=== PATIENT | male | born 1960 | race Caucasian/White ===

== ENCOUNTER → 2020-10-02 08:06 | Outpatient (BNVA) | payer BC, SELFPAY | PROVIDERS: Visit Provider Psychiatry & Neurology Neurology | DX: Z76.89 Persons encountering health services in other specified circumstances (principal) ==

== ENCOUNTER → 2021-01-23 08:20 | Outpatient (REF) | payer BC, SELFPAY ==
--- NOTE | 2021-01-23 08:30 | CA_ITS ---
Transthoracic Echocardiogram Patient (Last, First, Middle): Yemi Jalloh J Gender: Male Date of : 1960 Age: 60 Procedure Date: 01/23/2021 Procedure Type: Transthoracic Echocardiogram Location: OP Height: 182.88 cm Weight: 124.74 kg BSA: 2.44 m2 Heart Rate: bpm BP: 122 / 70 mmHg [employer]acher [place] [employer]: Referring MD: Gamal Roque MD Acquisition Professional: Berlin Nicholas MD Symptoms: I71.2 THORACIC AA W/O RUPTURE Study Quality: Good ECG Rhythm: Sinus Conclusions: - 1. Moderately dilated ascending aorta measured at 4.8 cm on this study 2. Normal LV systolic function with impaired relaxation filling pattern 3. Normal cardiac valvular Dopplers 4. Normal RV systolic pressure 5. No pericardial effusion Findings Left Ventricle Normal left ventricular size, thickness, and systolic function. The visually estimated ejection fraction is between 55-60%. Spectral Doppler is indicative of an impaired relaxation filling pattern. E/E prime ratio is between 8 and 15 consistent with indeterminate filling pressures. Right Ventricle Normal right ventricular cavity size and systolic function. Atria Both atria are normal in size. There is no evidence of interatrial shunt. Aortic Valve The aortic valve structure and function is likely normal. There is no aortic valve stenosis. There is no aortic valve regurgitation. Mitral Valve Normal mitral valve structure and function. There is trace mitral valve regurgitation. There is no mitral valve stenosis. Pulmonic Valve The pulmonic valve was not well visualized. Tricuspid Valve Normal tricuspid valve structure. There is trace tricuspid valve regurgitation. The right ventricular systolic pressure is normal. The right ventricular systolic pressure is 21 mmHg. Normal right atrial pressure. There is no evidence of pulmonary hypertension. Great Vessels The pulmonary artery was not well visualized. There is moderate dilatation of the ascending aorta measuring 4.80 cm. Venous The inferior vena cava is normal in size and collapses greater than 50% with inspiration. Pericardium/Pleural There is no evidence of pericardial effusion. Prior Study Comparison Changes noted compared to prior study dated: 07/22/2020. Ascending aorta is measured at 4.8 cm, consider thoracic CTA to evaluate the entirety of the ascending aorta Measurements 2D Linear Measurements IVSd: 1.44 0.6-0.9/0.6-1.0 cm LVIDd: 3.86 3.9-5.3/4.2-5.9 cm LVIDd Index: 1.58 2.4-3.2/2.2-3.1 cm/m2 LVIDs: 2.20 2.0-3.6 cm LVPWd: 1.45 0.7-1.1 cm Ao Root: 3.00 2.1-3.5 cm LA Diam: 3.60 2.7-3.8/3.0-4.0 cm LAIDs Index: 1.48 1.5-2.3 cm/m2 LV Mass: 260.04 67-162/88-224 g LV Mass Index: 106.57 43-95/49-115 g/m2 LVOT Diam: 2.10 3.0+(-)1.3 cm 2D Systolic Function EF 4C: 67.00 >55% EF 2C: 73.70 >55% Mitral Valve MV Pk E: 0.87 MV PK A: 0.72 MV Decel Time: 206.00 E/A: 1.20 E'Lateral: 11.20 E'Medial: 9.48 E/E' Med: 9.20 E/E' Lat: 7.80 PHT: 60.00 MVA PHT: 3.67 Decel [place]: 4.24 Aortic Valve AoV Pk Tanner: 1.39 AoV Mn Tanner: 0.92 AoV VTI: 0.30 AoV Pk Grad: 8.00 Aov Mn Grad: 4.00 DIA Cont.VTI: 2.97 LVOT LVOT Pk Tanner: 1.29 LVOT Mn Tanner: 0.78 LVOT VTI: 0.26 LVOT Pk Grad: 7.00 LVOT Mn Grad: 3.00 LVOT Diam: 2.10 LVOT Area: 3.46 Diastolic Function MV Pk E: 0.87 MV Pk A: 0.72 E/A: 1.20 E'Medial: 9.48 E/E' Med: 9.20 E' Laterial: 11.20 E/E' Lat: 7.80 Tricuspid Valve TR Pk Tanner: 2.13 TR Pk Grad: 18.00 RA Press: 3.00 RVSP: 21.00 Great Vessels Aorta Ao Root-2D: 3.00 2.0-3.7 cm Ao Asc: 4.80 2.1-3.4 cm Pulmonary Valve PV Pk Tanner: 1.07 Peak PV Grad: 5.00 Updated in Other Vendor System with Status of Final Berlin Nicholas MD electronically signed on 01/24/2021 2:50:51 PM with status of Final
== END ==
LOC: HO.CARD 08:20
PROVIDERS: PCP Nurse Practitioner Family; Visit Provider Internal Medicine
DX: I71.2 Thoracic aortic aneurysm, without rupture (principal)
CPT/HCPCS: 93306

== ENCOUNTER 2021-02-06 09:32 | Outpatient (REF) | payer BC, SELFPAY ==
[2021-02-06 11:59] LABS: Anion Gap 14 (12-20); Blood Urea Nitrogen 17 mg/dL (9-16); Carbon Dioxide 27 mmol/L (22-29); Chloride 104 mmol/L (96-108); Estimated Glomerular Filt Rate > 60; Glucose Random 115 mg/dL (60-115); Potassium 4.4 mmol/L (3.3-5.1); Sodium 141 mmol/L (135-145)
== END 2021-02-06 09:33 | disposition home or self-care (01) ==
LOC: HO.HMGCLDS 09:32
PROVIDERS: PCP Nurse Practitioner Family; Visit Provider Nurse Practitioner Family
DX: I71.2 Thoracic aortic aneurysm, without rupture (principal)
CPT/HCPCS: 36415; 80048

== ENCOUNTER 2021-02-18 08:36 | Outpatient (REF) | payer BC, SELFPAY ==
[2021-02-18 09:47] LABS: MANUAL DIFF FLAG NO
[2021-02-18 09:52] LABS: Basophils Absolute Auto 0.1 X10*3/uL (0.0-0.2); Basophils Percent Auto 0.7 % (0-2); Eosinophils Absolute Auto 0.1 X10*3/uL (0.0-0.4); Eosinophils Percent Auto 1.8 % (0-4); Hematocrit 44.7 % (42-52); Hemoglobin 14.6 g/dl (14.0-18.0); Imm Gran Abs Auto 0.01 X10*3/uL (0.00-0.03); Imm Gran Pct Auto 0.1 % (0.0-0.4); Lymphocytes Percent Auto 28.9 % (20-40); Mean Corpuscular HGB Conc 32.7 g/dl (31.0-36.0); Mean Corpuscular Hemoglobin 28.5 pg (27.0-33.0); Mean Corpuscular Volume 87.3 fL (80-98); Mean Platelet Volume 8.2 fL (9.4-12.4); Monocytes Absolute Auto 0.5 X10*3/uL (0.1-1.2); Monocytes Percent Auto 6.7 % (2-11); Neutrophils Absolute Auto 4.2 X10*3/uL (2.0-8.3); Neutrophils Percent Auto 61.8 % (45-73); Platelet Count 236 X10*3/uL (160-400); Red Blood Count 5.12 X10*6/uL (4.60-5.80); Red Cell Distribution Width 13.9 % (11.0-16.0); White Blood Count 6.8 X10*3/uL (4.8-10.8)
[2021-02-18 10:22] LABS: Alanine Aminotransferase 18 U/L (0-40); Albumin Level 4.4 g/dL (3.5-5.0); Alkaline Phosphatase 82 U/L (39-117); Anion Gap 15 (12-20); Aspartate Amino Transferase 18 U/L (5-37); Bilirubin Total 0.8 mg/dL (0.0-1.0); Blood Urea Nitrogen 16 mg/dL (9-16); Calcium 9.1 mg/dL (8.4-10.2); Carbon Dioxide 24 mmol/L (22-29); Chloride 107 mmol/L (96-108); Cholesterol 144 mg/dL; Estimated Glomerular Filt Rate > 60; Glucose Fasting 105 mg/dL (60-99); HDL Cholesterol 33 mg/dL; Iron 129 mcg/dL (45-160); LDL Cholesterol Calculated 78 mg/dl; Percent Iron Saturation 37 % (15-50); Potassium 4.6 mmol/L (3.3-5.1); Sodium 141 mmol/L (135-145); Total Iron Binding Capacity 351 mcg/dL (228-428); Total Protein 7.3 g/dL (6.5-8.0); Triglycerides 167 mg/dL; Unsaturated Iron Binding 222 ug/dL
[2021-02-18 10:41] LABS: Prostate Specific Antigen Scr 0.41 ng/mL (<0.05-4.0); TSH reflex Free T4 2.49 uIU/mL (0.32-4.0)
[2021-02-18 10:44] LABS: Ferritin 268 ng/mL (20-250)
[2021-02-18 11:05] LABS: Folate 4.8 ng/mL (> or = 4.0); Vitamin B12 307 pg/mL (200-900)
[2021-02-22 15:56] LABS: Testosterone, Total 177 ng/dL (250-1100)
== END 2021-02-18 08:37 | disposition home or self-care (01) ==
LOC: HO.LAB 08:36
PROVIDERS: Absent Provider Nurse Practitioner Family; PCP Nurse Practitioner Family; Visit Provider Internal Medicine
DX: Z00.00 Encounter for general adult medical examination without abnormal findings (principal); R53.83 Other fatigue; I10 Essential (primary) hypertension; I71.2 Thoracic aortic aneurysm, without rupture; I47.1 Supraventricular tachycardia; G47.33 Obstructive sleep apnea (adult) (pediatric); Z12.5 Encounter for screening for malignant neoplasm of prostate; Z99.89 Dependence on other enabling machines and devices; Z79.82 Long term (current) use of aspirin; Z79.899 Other long term (current) drug therapy
CPT/HCPCS: 36415; 80053; 80061; 82607; 82728; 82746; 83540; 84153; 84403; 84443; 85025

== ENCOUNTER 2021-07-02 09:08 | Outpatient (REF) | payer OTHER, SELFPAY ==
[2021-07-02 11:55] LABS: Anion Gap 12 (12-20); Blood Urea Nitrogen 10 mg/dL (9-16); Calcium 9.1 mg/dL (8.4-10.2); Carbon Dioxide 27 mmol/L (22-29); Chloride 106 mmol/L (96-108); Estimated Glomerular Filt Rate > 60; Glucose Random 133 mg/dL (60-115); Potassium 4.1 mmol/L (3.3-5.1); Sodium 141 mmol/L (135-145)
[2021-07-02 12:19] LABS: Ferritin 271 ng/mL (20-250)
== END 2021-07-02 09:09 | disposition home or self-care (01) ==
LOC: HO.HMGCLDS 09:08
PROVIDERS: PCP Nurse Practitioner Family; Visit Provider Internal Medicine
DX: I71.2 Thoracic aortic aneurysm, without rupture (principal); R79.89 Other specified abnormal findings of blood chemistry
CPT/HCPCS: 36415; 80048; 82728

== ENCOUNTER → 2021-07-31 10:26 | Outpatient (REF) | payer OTHER, SELFPAY ==
--- NOTE | 2021-07-31 10:30 | CA_ITS ---
Transthoracic Echocardiogram Patient (Last, First, Middle): Yemi Jalloh J Gender: Male Date of : 1960 Age: 61 Procedure Date: 07/31/2021 Procedure Type: Transthoracic Echocardiogram Location: OP Height: 182.88 cm Weight: 120.2 kg BSA: 2.40 m2 Heart Rate: bpm Talent Manager: GREY Referring MD: Gamal Roque MD Apron Trimmer: Berlin Nicholas MD Symptoms: I71.2 - Thoracic aortic aneurysm, without rupture Study Quality: Fair ECG Rhythm: Sinus Conclusions: - 1.Moderately dilated ascending aorta, measured at 4.5 cm on this study 2. Normal LV systolic and diastolic function 3. Normal cardiac valvular Doppler 4. No gross pericardial effusion 5. Normal RV systolic pressure Findings Left Ventricle Normal left ventricular size, thickness, and systolic function. The visually estimated ejection fraction is between 60-65%. Spectral Doppler is indicative of a normal filling pattern. Right Ventricle Normal right ventricular cavity size and systolic function. Atria The left atrium is normal in size. There is no evidence of interatrial shunt. The right atrium is normal in size. Aortic Valve The aortic valve structure and function is likely normal. There is no aortic valve stenosis. There is no aortic valve regurgitation. Mitral Valve Normal mitral valve structure and function. There is trace mitral valve regurgitation. There is no mitral valve stenosis. Pulmonic Valve The pulmonic valve was not well visualized. Tricuspid Valve Likely normal tricuspid valve structure and function. There is trace tricuspid valve regurgitation. The right ventricular systolic pressure is normal. The right ventricular systolic pressure is 25 mmHg. There is no evidence of pulmonary hypertension. Great Vessels The pulmonary artery was not well visualized. There is moderate dilatation of the ascending aorta measuring 4.50 cm. Venous The inferior vena cava is normal in size and collapses greater than 50% with inspiration. Pericardium/Pleural There is no evidence of pericardial effusion. Prior Study Comparison Measured ascending aorta on this study at 4.5 cm, which is smaller the prior study at 4.8 cm. Could be underestimated on this study Measurements 2D Linear Measurements IVSd: 0.83 0.6-0.9/0.6-1.0 cm LVIDd: 4.34 3.9-5.3/4.2-5.9 cm LVIDd Index: 1.81 2.4-3.2/2.2-3.1 cm/m2 LVIDs: 2.77 2.0-3.6 cm LVPWd: 0.78 0.7-1.1 cm Ao Root: 3.30 2.1-3.5 cm LA Diam: 4.20 2.7-3.8/3.0-4.0 cm LAIDs Index: 1.75 1.5-2.3 cm/m2 LV Mass: 303.16 67-162/88-224 g LV Mass Index: 126.32 43-95/49-115 g/m2 LVOT Diam: 2.40 3.0+(-)1.3 cm Mitral Valve MV Pk E: 0.93 MV PK A: 0.74 MV Decel Time: 201.00 E/A: 1.30 E'Lateral: 10.70 E'Medial: 7.51 E/E' Med: 12.40 E/E' Lat: 8.70 PHT: 59.00 MVA PHT: 3.73 Decel [place]: 4.57 Aortic Valve AoV Pk Tanner: 1.43 AoV Mn Tanner: 1.07 AoV VTI: 0.34 AoV Pk Grad: 8.00 Aov Mn Grad: 5.00 DIA Cont.VTI: 3.22 LVOT LVOT Pk Tanner: 0.95 LVOT Mn Tanner: 0.73 LVOT VTI: 0.24 LVOT Pk Grad: 4.00 LVOT Mn Grad: 2.00 LVOT Diam: 2.40 LVOT Area: 4.52 Diastolic Function MV Pk E: 0.93 MV Pk A: 0.74 E/A: 1.30 E'Medial: 7.51 E/E' Med: 12.40 E' Laterial: 10.70 E/E' Lat: 8.70 Tricuspid Valve TR Pk Tanner: 2.33 TR Pk Grad: 22.00 RA Press: 3.00 RVSP: 25.00 Great Vessels Aorta Ao Root-2D: 3.30 2.0-3.7 cm Ao Asc: 4.50 2.1-3.4 cm Pulmonary Valve PV Pk Tanner: 1.13 Peak PV Grad: 5.00 Updated in Other Vendor System with Status of Final Berlin Nicholas MD electronically signed on 07/31/2021 1:11:04 PM with status of Final
== END ==
LOC: HO.CARD 10:26
PROVIDERS: PCP Nurse Practitioner Family; Visit Provider Internal Medicine
DX: I71.2 Thoracic aortic aneurysm, without rupture (principal)
CPT/HCPCS: 93306

== ENCOUNTER → 2021-08-19 08:29 | Outpatient (BNVA) | payer OTHER, SELFPAY | PROVIDERS: PCP Nurse Practitioner Family; Referring Provider Nurse Practitioner Family; Visit Provider Internal Medicine ==

== ENCOUNTER 2022-01-21 08:48 | Outpatient (REF) | payer OTHER, SELFPAY ==
[2022-01-21 11:46] LABS: Appearance Urine CLOUDY; Color Urine YELLOW; Glucose Urine UA NEG (NEG); Leukocyte Esterase Urine NEG (NEG); Nitrite Urine NEG (NEG); Specific Gravity - Urine >= 1.030 (1.005-1.025); Urine Blood NEG (NEG); Urine Ketones NEG (NEG); Urine Protein NEG (NEG-TRACE)
[2022-01-21 12:04] LABS: Alanine Aminotransferase 19 U/L (0-40); Albumin Level 4.4 g/dL (3.5-5.0); Alkaline Phosphatase 79 U/L (39-117); Anion Gap 12 (12-20); Aspartate Amino Transferase 17 U/L (5-37); Bilirubin Total 0.8 mg/dL (0.0-1.0); Blood Urea Nitrogen 19 mg/dL (9-16); Calcium 9.6 mg/dL (8.4-10.2); Carbon Dioxide 25 mmol/L (22-29); Chloride 105 mmol/L (96-108); Cholesterol 132 mg/dL; Estimated Glomerular Filt Rate > 60; Glucose Fasting 114 mg/dL (60-99); HDL Cholesterol 31 mg/dL; LDL Cholesterol Calculated 75 mg/dl; Potassium 4.3 mmol/L (3.3-5.1); Sodium 138 mmol/L (135-145); Total Protein 7.3 g/dL (6.5-8.0); Triglycerides 132 mg/dL
[2022-01-21 12:10] LABS: Prostate Specific Antigen Scr 0.48 ng/mL (<0.05-4.0); TSH reflex Free T4 2.13 uIU/mL (0.32-4.0)
== END 2022-01-21 08:49 | disposition home or self-care (01) ==
LOC: HO.HMGCLDS 08:48
PROVIDERS: PCP Nurse Practitioner Family; Visit Provider Nurse Practitioner Family
DX: I10 Essential (primary) hypertension (principal); Z12.5 Encounter for screening for malignant neoplasm of prostate
CPT/HCPCS: 36415; 80053; 80061; 81003; 84153; 84443

== ENCOUNTER 2022-02-17 09:25 | Outpatient (REF) | payer OTHER, SELFPAY ==
[2022-02-17 12:50] LABS: Anion Gap 12 (12-20); Blood Urea Nitrogen 15 mg/dL (9-16); Calcium 9.3 mg/dL (8.4-10.2); Carbon Dioxide 27 mmol/L (22-29); Chloride 107 mmol/L (96-108); Estimated Glomerular Filt Rate > 60; Glucose Random 127 mg/dL (60-115); Potassium 4.2 mmol/L (3.3-5.1); Sodium 142 mmol/L (135-145)
== END 2022-02-17 09:26 | disposition home or self-care (01) ==
LOC: HO.HMGCLDS 09:25
PROVIDERS: Visit Provider Internal Medicine
DX: I10 Essential (primary) hypertension (principal)
CPT/HCPCS: 36415; 80048

== ENCOUNTER → 2022-03-11 13:26 | Outpatient (BNVA) | payer OTHER, SELFPAY | PROVIDERS: PCP Nurse Practitioner Family; Referring Provider Nurse Practitioner Family; Visit Provider Internal Medicine | DX: I71.2 Thoracic aortic aneurysm, without rupture (principal); I47.1 Supraventricular tachycardia; I44.0 Atrioventricular block, first degree; I10 Essential (primary) hypertension; G47.33 Obstructive sleep apnea (adult) (pediatric); Z99.89 Dependence on other enabling machines and devices | CPT/HCPCS: 93005 ==

== ENCOUNTER → 2022-08-06 10:32 | Outpatient (REF) | payer OTHER, SELFPAY ==
--- NOTE | 2022-08-06 10:34 | CA_ITS ---
Transthoracic Echocardiogram Patient (Last, First, Middle): Yemi Jalloh J Gender: Male Date of : 1960 Age: 62 Procedure Date: 08/06/2022 Procedure Type: Transthoracic Echocardiogram Location: OP Height: 182.88 cm Weight: 122.47 kg BSA: 2.42 m2 Heart Rate: bpm [employer] Bagger: OBDULIA Referring MD: Gamal Roque MD Symptoms: I71.2 - Thoracic aortic aneurysm, without rupture Study Quality: Technically Difficult/BSA/Contrast ECG Rhythm: Sinus Conclusions: - The left ventricular systolic function is hyperdynamic. The visually estimated ejection fraction is >70%. - No obvious valvular pathology seen on this study. - There is moderate dilatation of the ascending aorta measuring 4.70 cm. Findings Procedure Information Contrast agent, definity, is being given per protocol without apparent complications. Left Ventricle Normal left ventricular cavity size. The left ventricular systolic function is hyperdynamic. The visually estimated ejection fraction is >70%. There is no evidence of regional wall motion abnormalities. Diastolic function is normal for age. There is mild septal asymmetric hypertrophy. Right Ventricle Normal right ventricular cavity size and systolic function. Atria Both atria are normal in size. Aortic Valve There is a normal trileaflet aortic valve. There is no aortic valve stenosis. There is no aortic valve regurgitation. Mitral Valve The mitral valve appears normal. There is no mitral valve regurgitation. There is no mitral valve stenosis. Pulmonic Valve The pulmonic valve is likely normal. Tricuspid Valve The tricuspid valve was not well visualized. There is no tricuspid valve regurgitation. Tricuspid regurgitation envelope is inadequate for calculation of right ventricular systolic pressure. Great Vessels The aortic annulus and sino tubular ridge are normal in size. There is moderate dilatation of the ascending aorta measuring 4.70 cm. Venous The inferior vena cava is normal in size and collapses greater than 50% with inspiration. Pericardium/Pleural There is no evidence of pericardial effusion. Prior Study Comparison No significant change compared to prior study dated: 07/31/2021. Variable ascending aortic measurements in the past, upto 4.8cm. Recommendations, Care & Conclusions No obvious valvular pathology seen on this study. Measurements 2D Linear Measurements IVSd: 0.98 0.6-0.9/0.6-1.0 cm LVIDd: 4.72 3.9-5.3/4.2-5.9 cm LVIDd Index: 1.95 2.4-3.2/2.2-3.1 cm/m2 LVPWd: 0.83 0.7-1.1 cm LA Diam: 3.50 2.7-3.8/3.0-4.0 cm LAIDs Index: 1.45 1.5-2.3 cm/m2 LV Mass: 180.22 67-162/88-224 g LV Mass Index: 74.47 43-95/49-115 g/m2 LVOT Diam: 2.30 3.0+(-)1.3 cm 2D Systolic Function EF 4C: 82.00 >55% EF 2C: 70.90 >55% EF BiP: 77.60 >55% Mitral Valve MV Pk E: 0.93 MV PK A: 0.85 MV Decel Time: 218.00 E/A: 1.10 E'Lateral: 8.59 E'Medial: 7.29 E/E' Med: 12.80 E/E' Lat: 10.90 PHT: 64.00 MVA PHT: 3.44 Decel [place]: 4.29 Aortic Valve AoV Pk Tanner: 1.48 AoV Mn Tanner: 1.06 AoV VTI: 0.31 AoV Pk Grad: 9.00 Aov Mn Grad: 5.00 DIA Cont.VTI: 3.81 LVOT LVOT Pk Tanner: 1.22 LVOT Mn Tanner: 1.02 LVOT VTI: 0.28 LVOT Pk Grad: 6.00 LVOT Mn Grad: 5.00 LVOT Diam: 2.30 LVOT Area: 4.15 Diastolic Function MV Pk E: 0.93 MV Pk A: 0.85 E/A: 1.10 E'Medial: 7.29 E/E' Med: 12.80 E' Laterial: 8.59 E/E' Lat: 10.90 Right Ventricle TAPSE (mm): 18.30 TVS' Tanner: 12.20 Tricuspid Valve RA Press: 8.00 Great Vessels Aorta Sinus of Valsalva: 3.30 2.0-3.5 cm Ao Asc: 4.70 2.1-3.4 cm Pulmonary Valve PV Pk Tanner: 1.05 Peak PV Grad: 4.00 Updated in Other Vendor System with Status of Final Gamal Roque MD electronically signed on 08/07/2022 11:08:13 AM with status of Final
== END ==
LOC: HO.CARD 10:32
PROVIDERS: PCP Nurse Practitioner Family; Referring Provider Hospitalist; Visit Provider Internal Medicine
DX: I71.2 Thoracic aortic aneurysm, without rupture (principal)
CPT/HCPCS: 93306; Q9957

== ENCOUNTER 2023-01-12 10:33 | Outpatient (REF) | payer OTHER, SELFPAY ==
[2023-01-12 14:51] LABS: Anion Gap 10 (12-20); Blood Urea Nitrogen 14 mg/dL (9-16); Calcium 8.9 mg/dL (8.4-10.2); Carbon Dioxide 27 mmol/L (22-29); Chloride 107 mmol/L (96-108); Estimated Glomerular Filt Rate > 60; Glucose Random 97 mg/dL (60-115); Potassium 4.4 mmol/L (3.3-5.1); Sodium 140 mmol/L (135-145)
== END 2023-01-12 10:34 | disposition home or self-care (01) ==
LOC: HO.HMGCLDS 10:33
PROVIDERS: PCP Nurse Practitioner Family; Visit Provider Internal Medicine
DX: I71.20 Thoracic aortic aneurysm, without rupture, unspecified (principal)
CPT/HCPCS: 36415; 80048

== ENCOUNTER → 2023-02-25 08:47 | Outpatient (BNVA) | payer OTHER, SELFPAY | PROVIDERS: PCP Nurse Practitioner Family; Referring Provider Nurse Practitioner Family; Visit Provider Internal Medicine | DX: I71.20 Thoracic aortic aneurysm, without rupture, unspecified (principal); I10 Essential (primary) hypertension; I47.1 Supraventricular tachycardia; I44.1 Atrioventricular block, second degree | CPT/HCPCS: 93005 ==

== ENCOUNTER → 2023-05-08 10:52 | Outpatient (BNVA) | payer OTHER, SELFPAY | PROVIDERS: PCP Nurse Practitioner Family; Visit Provider Internal Medicine Gastroenterology ==

== ENCOUNTER 2023-05-20 10:48 | Day surgery (SDC) | payer OTHER, SELFPAY ==
[2023-05-15 11:41] VITALS: BMI 33.4
--- NOTE | 2023-05-18 10:20 | HO.ANESPROP2 ---
Documented by User: Valentina Thapa NP 05/18/23 10:24 HPI - Anesthesia Eval Consult details Narrative: 63yo M for EGD with Balloon Dilitation, Colonoscopy Cardiac visit 02/2023: Suggestion of Mobitz 1 second-degree block on EKG but there are no dropped beats.? He has no symptoms whatsoever.? He will keep an eye on heart rates with his smart watch. SVT s/p ablation without recurrence REI - not using CPAP, losing weight AAA stable PMFSH Active Problems Active Problems: All Active Problems (Updated 05/15/23 @ 11:40 by Alysha Barrientos RN) Obstructive sleep apnea (Acute) Thoracic aortic aneurysm (Acute) Physical exam (Acute) Screening PSA (prostate specific antigen) (Acute) Dyslipidemia (Acute) Fatigue (Acute) Elevated ferritin (Acute) Low testosterone (Acute) First degree heart block by electrocardiogram (Acute) Second degree heart block (Acute) Screening for colon cancer (Acute) Dysphagia (Acute) REI on CPAP (Acute) Essential hypertension (Acute) Ascending aortic aneurysm (Acute) HTN (hypertension) (Acute) Past Medical History Medical History (Updated 05/20/23 @ 11:16 by Lisa Bowen RN) Ascending aorta dilatation Ascending aortic aneurysm Elevated cholesterol Essential hypertension HTN (hypertension) REI on CPAP SVT (supraventricular tachycardia) Family History Family History Father CHF (congestive heart failure) Vascular disease HTN (hypertension) CVD (cardiovascular disease) Diabetes mellitus Mother Stroke Brother HTN (hypertension) High cholesterol Blocked artery Sister HTN (hypertension) Son No problems noted. Daughter No problems noted. Surgical History Surgical History (Updated 05/15/23 @ 11:39 by Alysha Barrientos RN) History of esophagogastroduodenoscopy (EGD) History of meniscectomy of left knee Hx of colonoscopy Hx of meniscectomy of right knee Social History Social History Housing: House Alcohol intake: current Alcohol intake frequency: a few times a week Patient Tobacco Use Status: Never used Tobacco e-Cigarette/Vaping Use: Never Used Second Hand Smoke Exposure: No Use of substances other than those prescribed or required for medical reasons: No Are you DNR?: No Advance Directives: No Advance Directives Information Provided: Yes Recently lost weight without trying: No How much weight loss: 14-23 pounds Nutrition Risks: No Nutritional Risk service: No Current occupational status: retired Cognitive needs: No Hearing needs: No Vision needs: No Meds Allergies Allergy/AdvReac Type Severity Reaction Status Date / Time No Known Allergies Allergy Verified 05/08/23 10:55 Exam Exam Date and Time: May 18, 2023 1020 Height,Weight and Vital Signs: Height 6 ft 1 in Weight 114.759 kg Pertinent Lab Results Pertinent Lab Results: Laboratory Tests 01/12/23 10:47 Sodium 140 Potassium 4.4 Chloride 107 Carbon Dioxide 27 BUN 14 Creatinine 0.81 Narrative Narrative: EKG 02/2023 underlying sinus rhythm with Mobitz type 1 second-degree heart block but do not see any dropped beats. Per cardiac visit 02/2023 chest CTA, ascending aortic size 4.4/4.4 cm.? This is similar to the prior study and the measurements are identical.? From coronary standpoint, no hemodynamically significant CAD. In a prior chest CT, it was 4.6 cm.? In the echocardiograms, measured at 4.7 cm. Overall, there is a discrepancy between the echocardiogram and chest CTA.? However, the last 2 measurements in the chest CT are identical.? Hence we will probably just do CTs in the future for measurements. Assessment and Plan Assessment Anesthesia Assessment: Chart Reviewed Documented by User: Ricco De Los Santos MD 05/20/23 11:18 [facility] Past Medical History Medical History (Updated 05/20/23 @ 11:16 by Lisa Bowen RN) Ascending aorta dilatation Ascending aortic aneurysm Elevated cholesterol Essential hypertension HTN (hypertension) REI on CPAP SVT (supraventricular tachycardia) Family History Family History Father CHF (congestive heart failure) Vascular disease HTN (hypertension) CVD (cardiovascular disease) Diabetes mellitus Mother Stroke Brother HTN (hypertension) High cholesterol Blocked artery Sister HTN (hypertension) Son No problems noted. Daughter No problems noted. Family history of problems with anesthesia: No Surgical History Surgical History (Updated 05/15/23 @ 11:39 by Alysha Barrientos RN) History of esophagogastroduodenoscopy (EGD) History of meniscectomy of left knee Hx of colonoscopy Hx of meniscectomy of right knee History of Problems with Anesthesia: No Social History Social History Housing: House Alcohol intake: current Alcohol intake frequency: a few times a week Patient Tobacco Use Status: Never used Tobacco e-Cigarette/Vaping Use: Never Used Second Hand Smoke Exposure: No Use of substances other than those prescribed or required for medical reasons: No Are you DNR?: No Advance Directives: No Advance Directives Information Provided: Yes Recently lost weight without trying: No How much weight loss: 14-23 pounds Nutrition Risks: No Nutritional Risk service: No Current occupational status: retired Cognitive needs: No Hearing needs: No Vision needs: No Meds Allergies Allergy/AdvReac Type Severity Reaction Status Date / Time No Known Allergies Allergy Verified 05/08/23 10:55 Exam Airway Mallampati Class: II TM Dist: >3cm Neck ROM: Limited Heart: rrr Lungs: cta Assessment and Plan Assessment Anesthesia Assessment: Anesthesia Plan Discussed Final Anesthetic Review Family History of Problems with Anesthesia: No History of Problems with Anesthesia: No NPO: Yes ASA Class: III Final Preanesthetic Review: No Changes in Pt Med Stat, Meds/Allgs Chart Reviewed, Consent Obtained/Reviewed and Anes Risks/Benef Reviewed Patient Risk: Intermediate Procedure Risk: Intermediate Anesthetic Plan Anesthetic Plan: MAC: and Agree w/ Assess. and Plan Disposition: Standard PACU
[2023-05-20 11:03] VITALS: BP 151/95; PULSE 83; RESP 16; TEMP 36.9; O2SAT 97
[2023-05-20] MEDS: Lactated Ringers 1,000 ML 100 ML IVCONT (11:16)
--- NOTE | 2023-05-20 11:26 | MHC.SHP ---
Pre-Procedural Eval Section A Date of Service: 05/20/23 The patient is an INPATIENT: No The History & Physical has been completed within 30 days and I have reviewed it.: Yes Section B Chief Complaint: Dysphagia, unspecified,Screening Allergies: Allergies Allergy/AdvReac Type Severity Reaction Status Date / Time No Known Allergies Allergy Verified 05/08/23 10:55 Plan Diagnosis/Plan: Unchanged I have reviewed the history and physical and performed a pertinent physical examination on my patient. No changes have occurred unless specified. Time Spent With Patient Time: Total time managing care of this patient today ____ minutes.
--- NOTE | 2023-05-20 11:27 | W.PM.OPN ---
Operative Note Operative Note Date of Service: 05/20/23 Narrative: Operative Information Procedure Description: EGD, Colonoscopy Indication: dysphagia, hx of colon polyps Anesthesia: MAC FLEXIBLE TRANSORAL UPPER GASTROINTESTINAL ENDOSCOPY AND COLONOSCOPY PROCEDURE NOTE UPPER ENDOSCOPY Consent: Indications for the procedure and potential complications of bleeding, perforation, reaction to medications and missed diagnosis were discussed with the patient and informed consent was obtained. Instrument: Olympus GIF H 190 J mid size upper endoscope Monitoring: Vital signs and clinical assessment, continuous EKG monitoring, Pulse oximetry, Carbon Dioxide monitoring and blood pressure monitoring were done throughout the procedure. Procedure: The patient was placed in the left lateral decubitis position and pre-procedure medications were administered and a bite block was placed. The endoscope was inserted into the mouth and advanced under direct vision to the third part of duodenum. A careful inspection was made as the upper endoscope was withdrawn including a retroflexed examination of the proximal stomach; Findings and interventions are described below. Findings: Larynx:normal Esophagus: GE junction at 41 cm, diaphragm hiatus at 43 cm, some erythema at GEJ, bx taken, also from distal and proximal esophagus. The LES was lax. Balloon dilation done to 19 mm at lower esophagus and UES. no tears seen. 2 cm hiatal hernia noted. Stomach: Several fundic gland appearing polyps noted, Biopsies were obtained. Grade 3 flap valve on retroflexed examination of the cardia. Duodenum: Normal bulb and descending duodenum, Intervention: Biopsies as noted above, balloon dilation COLONOSCOPY Instrument: Olympus variable stiffness ADULT scope 190L Colonoscopy Monitoring: Vital signs and clinical assessment, continuous EKG monitoring, Pulse oximetry, Carbon Dioxide monitoring and blood pressure monitoring were done throughout the procedure. Colon withdrawal time was 6 minutes. Procedure: The patient was placed in the left lateral decubitis position and pre-procedure medications were administered. After a digital rectal examination of the ano-rectum, the video colonoscope was inserted into the rectum and advanced through the colon to the cecum/TI. The colonoscope was slowly withdrawn in a retrograde panoramic fashion and the colon mucosa was carefully examined including a retroflexed view of the rectum. Findings and interventions are described below. Procedure Difficulty: moderate due to looping, pressure applied Findings: Terminal Ileum-not intubated Cecum:normal Ascending Colon: normal Transverse Colon -normal Descending Colon:normal Sigmoid Colon: normal Rectum: Retroflexion with small internal hemorrhoids, grade I Anorectum - normal Colon preparation: [place] Bowel Preparation Scale Right colon; 2 Transverse colon: 2 Left colon; 2 (0 = Unprepared colon segment with mucosa not seen due to solid stool that cannot be cleared. 1 = Portion of mucosa of the colon segment seen, but other areas of the colon segment not well seen due to staining, residual stool and/or opaque liquid. 2 = Minor amount of residual staining, small fragments of stool and/or opaque liquid, but mucosa of colon segment seen well. 3 = Entire mucosa of colon segment seen well with no residual staining, small fragments of stool or opaque liquid) Impression and Post Procedure Diagnosis: Endoscopy Findings: lax LES fundic gland polyps hiatal hernia Colonoscopy Findings: internal hemorrhoids tortuous colon Plan: Await Pathology results Repeat Colonoscopy in 5-6 years due to hx of polyps or earlier if clinically indicated High fiber diet leaflet avoid straining at stool, epsom salts and sitz bath, anusol supps or cream reflux precautions, can change PPI to esomeprazole Above findings were reviewed with the patient and relevant handouts were provided if indicated.
[2023-05-20 12:18] VITALS: BP 140/78; PULSE 85; RESP 16; TEMP 36.6; O2SAT 98
[2023-05-20 12:32] VITALS: BP 142/75; PULSE 78; RESP 16; TEMP 36.3; O2SAT 98
== END 2023-05-20 13:35 | disposition home or self-care (01) ==
PROVIDERS: PCP Nurse Practitioner Family; Visit Provider Internal Medicine Gastroenterology
PROC: (CPT 45378; principal; 2023-05-20 15:00)
PROC: 0DJD8ZZ Inspection of Lower Intestinal Tract, Via Natural or Artificial Opening Endoscopic (ICD-10-PCS; CPT 45378; 2023-05-20 15:00)
DX: Z12.11 Encounter for screening for malignant neoplasm of colon (principal); K64.0 First degree hemorrhoids; K56.2 Volvulus; Z86.010 Personal history of colon polyps; R13.10 Dysphagia, unspecified; K31.7 Polyp of stomach and duodenum; K44.9 Diaphragmatic hernia without obstruction or gangrene; I10 Essential (primary) hypertension; G47.33 Obstructive sleep apnea (adult) (pediatric); Z99.89 Dependence on other enabling machines and devices
CPT/HCPCS: 45378; 43249; 43239; 88305; 88342; C1726

== ENCOUNTER 2023-06-09 17:24 | Emergency (ER) | payer OTHER, SELFPAY ==
--- NOTE | ~2023-06-09 | CT_ITS ---
EXAMINATION: CT ABDOMEN AND PELVIS WITHOUT CONTRAST CLINICAL INFORMATION: Right flank pain COMPARISON: None available. TECHNIQUE: Multidetector volumetric imaging was performed from the superior aspect of the liver through the pubic symphysis. Sagittal and coronal reformatted images were obtained on the technologist's workstation. This CT examination was performed using dose optimization techniques as appropriate, variously including the following: *Automated exposure control *Adjustment of mA and/or kV according to patient size (this includes techniques or standardized protocols for targeted exams where dose is matched to indication/reason for exam; i.e. extremities or head) *Use of iterative reconstruction technique DLP: 860 mGy-cm FINDINGS: LUNG BASES: The visualized lung bases are unremarkable. LIVER, GALLBLADDER, AND BILIARY TREE: The liver is normal in size, shape, and attenuation. No focal hepatic lesion or biliary ductal dilatation is present. There is solitary 1.1 cm radiopaque gallstone without wall thickening. PANCREAS: Unremarkable. SPLEEN: Unremarkable. ADRENAL GLANDS: Unremarkable. KIDNEYS AND URETERS: The kidneys are normal in size, shape, and attenuation. There is a 3 mm radiopaque calculi mid pole left kidney. No additional radiopaque calculi seen. No evidence of hydronephrosis on either side. There is bilateral moderate perinephric stranding but no fluid collection seen. BLADDER: Unremarkable. GASTROINTESTINAL TRACT: There is scattered stool and gas seen throughout the colon without any significant distention. The stool is most prominent in the right colon and cecum region. The small bowel loops are normal caliber. Appendix is normal caliber. ABDOMINAL WALL: No significant hernia is appreciated. LYMPH NODES: Normal. VASCULAR: Unremarkable. PELVIC VISCERA: The prostate gland is minimally enlarged with punctate central gland calcification. No free fluid. OSSEOUS STRUCTURES: No aggressive lytic or sclerotic process seen. There is mild facet joint arthropathy L4-L5 disc level. CT/CT abdomen pelvis wo IV con IMPRESSION: Moderate constipation most localized in the right colon and cecal region. Appendix is normal. No obstruction seen. Nonobstructive radiopaque calculi mid pole left kidney. There is bilateral perinephric stranding but no hydronephrosis seen on either side. Fleischner guidelines were followed.
[2023-06-09 17:35] VITALS: BP 190/90; PULSE 67; RESP 18; TEMP 36; O2SAT 99; BMI 34.3
--- NOTE | 2023-06-09 17:39 | ED.GENADULT ---
HPI - General Adult General Chief complaint: Abdominal Pain Stated complaint: Right flank pain/chills/n/constipation Time Seen by Provider: 06/09/23 19:57 Source: patient, RN notes reviewed and old records reviewed Mode of arrival: ambulatory Limitations: no limitations History of Present Illness HPI narrative: 63-year-old male presents for evaluation abdominal pain. He reports that he had abdominal pain/right flank pain twice last week but his pain improved He reports that his pain reoccurred again today prompting him to seek care. He has a history of kidney stones and is concerned this may be the cause of his symptoms. He has not seen any blood in the urine or difficulty urinating No fevers or chills Related Data Previous Rx's Medication Instructions Recorded aspirin 81 mg tablet,delayed 81 mg PO DAILY 90 days #90 tabs 08/22/21 release losartan 100 mg tablet 100 mg PO DAILY #90 tabs 09/09/22 rosuvastatin 40 mg tablet 40 mg PO DAILY #90 tabs 09/09/22 cholecalciferol (vitamin D3) 25 25 mcg PO DAILY 90 days #90 tabs 04/09/23 mcg (1,000 unit) tablet sodium sul 1.479 gram-potas ch See Rx Instructions PO PER PKG DIR 05/08/23 0.188 gram-magnes sul 0.225 gram #24 tabs tablet (Sutab) esomeprazole magnesium 20 mg 20 mg PO DAILY #90 caps 05/20/23 capsule,delayed release Allergies Allergy/AdvReac Type Severity Reaction Status Date / Time No Known Allergies Allergy Verified 06/09/23 17:35 Review of Systems Constitutional: Constitutional: Reports as per HPI, Denies chills, Denies fatigue, Denies fever(s) and Denies headache(s) ENT: Denies headache(s) Cardiovascular: Cardiovascular: Denies chest pain and Denies dyspnea Respiratory: Respiratory: Denies cough and Denies dyspnea Gastrointestinal: Gastrointestinal: Denies vomiting Genitourinary: Genitourinary: Denies difficulty urinating and Denies dysuria Neurologic: Denies headache(s) and Denies focal weakness Endocrine: Endocrine: Denies fatigue [facility] Past Medical History Medical History (Updated 06/09/23 @ 20:00 by Raphael Freitas) Ascending aorta dilatation Ascending aortic aneurysm Elevated cholesterol Essential hypertension HTN (hypertension) REI on CPAP SVT (supraventricular tachycardia) Surgical History (Updated 05/15/23 @ 11:39 by Alysha Barrientos RN) History of esophagogastroduodenoscopy (EGD) History of meniscectomy of left knee Hx of colonoscopy Hx of meniscectomy of right knee Family History Family History Father CHF (congestive heart failure) Vascular disease HTN (hypertension) CVD (cardiovascular disease) Diabetes mellitus Mother Stroke Brother HTN (hypertension) High cholesterol Blocked artery Sister HTN (hypertension) Son No problems noted. Daughter No problems noted. Social History Social History Housing: House Alcohol intake: current Alcohol intake frequency: a few times a week Patient Tobacco Use Status: Never used Tobacco e-Cigarette/Vaping Use: Never Used Second Hand Smoke Exposure: No service: No Current occupational status: retired Cognitive needs: No Hearing needs: No Vision needs: No Physical Exam ED Vital Signs: Vital Signs - 24 hr 06/09/23 17:35 06/09/23 19:56 Temperature 96.8 F 98.6 F Pulse Rate 67 60 Respiratory Rate 18 16 Blood Pressure 190/90 H 167/78 H Pulse Oximetry 99 99 Oxygen Delivery Method Room Air Room Air BMI result Body Mass Index 34.3 Const General: healthy appearing, comfortable, no acute distress, alert and awake Nutritional Appearance: well nourished Orientation/consciousness: patient oriented x3 HENMT Head: Yes normocephalic and Yes atraumatic Throat: Yes posterior oropharynx normal Eyes Eyelids: Yes eyelids normal Conjunctivae: conjunctivae normal Sclerae: sclerae normal Corneas: corneas normal Pupils: Equal, round and reactive pupils present EOM: EOMs intact bilaterally Neck Neck: Yes full ROM Resp Effort & Inspection: normal respiratory effort, able to speak in complete sentences, no audible wheezes and not labored Auscultation: clear to auscultation bilaterally Cardio Rate: regular rate Rhythm: regular rhythm GI Inspection: No distended Palpation (GI): Soft to palpation, not firm, Tenderness to palpation present (GI) in the RLQ, no guarding and not rigid Auscultation: normoactive bowel sounds Skin General skin exam: no rashes or lesions noted and elasticity normal Neuro General: patient oriented x3 Cranial nerves: Yes Equal, round and reactive pupils present and Yes Bilaterally intact EOM present Cognition (Neuro): normal cognition Extrem Other: Moving all extremities well without any obvious deformities Course Course Course Narrative: RME- 63-year-old male presents for evaluation of right flank pain. Symptoms initially started 1 week ago and then improved but returned today. Plan for labs, UA, CT scan of the abdomen pelvis Medical Decision Making Medical Decision Making [facility] Narrative: 63-year-old male presents for evaluation of abdominal pain. Patient has a history of kidney stones and given location of his pain is concerned that this is what he is experiencing today. Patient had labs and a CT scan ordered. His labs were reassuring, CT scan showed constipation in the area of his pain which explains his symptoms. I discussed with the patient that we could still get a UA although he has no urinary symptoms his CT scan does not show any evidence of cystitis, perinephric fat stranding or obstructive uropathy. Patient ultimately declines waiting for UA and well treat his constipation. Patient reports that he has multiple laxatives at home that he will start taking Differential Diagnosis Constipation Obstructive uropathy Acute appendicitis UTI Abdominal pain Lab Data [facility] Lab Attestation statement: I reviewed the patient's lab results. No leukocytosis, no significant anemia, normal platelet count. Patient's electrolytes within normal limits, BUN is 11 with a creatinine 0.79, which is within normal limits. 06/09/23 18:16 06/09/23 18:16 Labs: Lab Results 06/09/23 06/09/23 Range/Units 18:16 18:16 WBC 7.8 (4.8-10.8) X10*3/uL RBC 5.01 (4.60-5.80) X10*6/uL Hgb 14.3 (14.0-18.0) g/dl Hct 43.4 (42.0-52.0) % MCV 86.6 (80.0-98.0) fL MCH 28.5 (27.0-33.0) pg MCHC 32.9 (31.0-36.0) g/dl RDW 13.8 (11.0-16.0) % Plt Count 229 (160-400) X10*3/uL MPV 8.2 L (9.4-12.4) fL Immature Gran % (Auto) 0.4 (0.0-0.4) % Neut % (Auto) 61.9 (45-73) % Lymph % (Auto) 26.7 (20-40) % [place] % (Auto) 7.7 (2-11) % Eos % (Auto) 2.7 (0-4) % Baso % (Auto) 0.6 (0-2) % Lymph # (Auto) 2.1 (1.2-4.9) X10*3/uL [place] # (Auto) 0.6 (0.1-1.2) X10*3/uL Eos # (Auto) 0.2 (0.0-0.4) X10*3/uL Baso # (Auto) 0.1 (0.0-0.2) X10*3/uL Abs Immat Gran (auto) 0.03 (0.00-0.03) X10*3/uL Absolute Neuts (auto) 4.8 (2.0-8.3) x10*3/uL Absolute Nucleated RBC 0.000 (0.0-0.012) X10*3/uL Nucleated RBC % (auto) 0.0 (0.0-0.2) /100WBC Sodium 141 (135-145) mmol/L Potassium 3.8 (3.3-5.1) mmol/L Chloride 106 (96-108) mmol/L Carbon Dioxide 27 (22-29) mmol/L Anion Gap 12 (12-20) BUN 11 (9-16) mg/dL Creatinine 0.79 (0.5-1.4) mg/dL Estim Creat Clear Calc 123.5 Estimated GFR > 60 Random Glucose 112 (60-115) mg/dL Calcium 9.3 (8.4-10.2) mg/dL Total Bilirubin 0.6 (0.0-1.0) mg/dL AST 15 (5-37) U/L ALT 14 (0-40) U/L Alkaline Phosphatase 74 (39-117) U/L Total Protein 7.2 (6.5-8.0) g/dL Albumin 4.2 (3.5-5.0) g/dL Lipase 9 (8-78) U/L Independent Interpretation I performed an independent interpretation of an: CT Scan (Moderate right-sided constipation) Radiology Impression Discussion of test interpretation with radiology: I have reviewed the radiologist's reading. (Moderate right-sided constipation, normal appendix) Discharge Plan Discharge Clinical Impression: Abdominal pain, Constipation Patient Disposition: Home, Self-Care Instructions: Constipation (ED) Additional Instructions: Your workup in the emergency department today was reassuring. Your renal function/kidney function was normal. Your CT scan showed moderate constipation all right-sided in the area of your discomfort This is the cause of your discomfort today You should take MiraLax every day for the next 2 weeks at least Increase fluid and fiber intake in your diet You should also use either magnesium citrate or Colace for the next couple of days until your symptoms began to improve Return for new or worsening symptoms Prescriptions: No Action aspirin 81 mg tablet,delayed release (DR/EC) 81 mg PO DAILY 90 Days Qty: 90 3RF rosuvastatin 40 mg tablet 40 mg PO DAILY Qty: 90 3RF losartan 100 mg tablet 100 mg PO DAILY Qty: 90 3RF cholecalciferol (vitamin D3) 25 mcg (1,000 unit) tablet 25 mcg PO DAILY 90 Days Qty: 90 1RF esomeprazole magnesium 20 mg capsule,delayed release(DR/EC) 20 mg PO DAILY Qty: 90 2RF Sutab 1.479-0.188- 0.225 gram tablet See Rx Instructions PO PER PKG DIR Qty: 24 0RF Rx Instructions: PO PER PKG DIR Interventions: ED Discharge Assessment Last Done: 06/09/23 20:02
[2023-06-09 18:21] LABS: MANUAL DIFF FLAG NO
[2023-06-09 18:27] LABS: Basophils Absolute Auto 0.1 X10*3/uL (0.0-0.2); Basophils Percent Auto 0.6 % (0-2); Eosinophils Absolute Auto 0.2 X10*3/uL (0.0-0.4); Eosinophils Percent Auto 2.7 % (0-4); Hematocrit 43.4 % (42.0-52.0); Hemoglobin 14.3 g/dl (14.0-18.0); Imm Gran Abs Auto 0.03 X10*3/uL (0.00-0.03); Imm Gran Pct Auto 0.4 % (0.0-0.4); Lymphocytes Absolute Auto 2.1 X10*3/uL (1.2-4.9); Lymphocytes Percent Auto 26.7 % (20-40); Mean Corpuscular HGB Conc 32.9 g/dl (31.0-36.0); Mean Corpuscular Hemoglobin 28.5 pg (27.0-33.0); Mean Corpuscular Volume 86.6 fL (80.0-98.0); Mean Platelet Volume 8.2 fL (9.4-12.4); Monocytes Absolute Auto 0.6 X10*3/uL (0.1-1.2); Monocytes Percent Auto 7.7 % (2-11); Neutrophils Absolute Auto 4.8 x10*3/uL (2.0-8.3); Neutrophils Percent Auto 61.9 % (45-73); Platelet Count 229 X10*3/uL (160-400); Red Blood Count 5.01 X10*6/uL (4.60-5.80); Red Cell Distribution Width 13.8 % (11.0-16.0); White Blood Count 7.8 X10*3/uL (4.8-10.8)
[2023-06-09 18:40] LABS: Alanine Aminotransferase 14 U/L (0-40); Albumin Level 4.2 g/dL (3.5-5.0); Alkaline Phosphatase 74 U/L (39-117); Anion Gap 12 (12-20); Aspartate Amino Transferase 15 U/L (5-37); Bilirubin Total 0.6 mg/dL (0.0-1.0); Blood Urea Nitrogen 11 mg/dL (9-16); Calcium 9.3 mg/dL (8.4-10.2); Carbon Dioxide 27 mmol/L (22-29); Chloride 106 mmol/L (96-108); Creatinine Clr Calc Pharmacy 123.5; Estimated Glomerular Filt Rate > 60; Glucose Random 112 mg/dL (60-115); Lipase 9 U/L (8-78); Potassium 3.8 mmol/L (3.3-5.1); Sodium 141 mmol/L (135-145); Total Protein 7.2 g/dL (6.5-8.0)
[2023-06-09 19:56] VITALS: BP 167/78; PULSE 60; RESP 16; TEMP 37; O2SAT 99
== END 2023-06-09 20:08 | disposition home or self-care (01) ==
LOC: HO.ED 20:05
PROVIDERS: Physician Assistant; Emergency Provider Emergency Medicine Emergency Medical Services; PCP Nurse Practitioner Family
DX: R10.9 Unspecified abdominal pain (principal); K59.00 Constipation, unspecified; I10 Essential (primary) hypertension; E78.5 Hyperlipidemia, unspecified; Z79.82 Long term (current) use of aspirin; Z79.899 Other long term (current) drug therapy
CPT/HCPCS: 36415; 74176; 80053; 83690; 85025; 99282; 99284

== ENCOUNTER 2023-07-13 12:53 | Outpatient (AMB) | payer OTHER, SELFPAY ==
--- NOTE | 2023-07-13 12:53 | A.OFFVIS_ITS ---
Intake Intake Visit Reasons: S/p egd/colon Intake Note: Yemi presents as a video today as a follow up to her procedures. CC: he states that he did have constipation but other than that no other concerns. [employer] Technician Required: No Allergies No Known Allergies Allergy (Verified 06/09/23 17:35) HPI S/p egd/colon HPI Details 63 yr old m being called for f/u RECAP: He has been having dysphagia only to solids for 6 months losing weight deliberately aortic aneurysm, stable 4.4 cm Last EGD/[place]; 2019 tubular adenoma chronic reflux changes, hiatal hernia EGD/[place]: 2022 Endoscopy Findings: lax LES fundic gland polyps hiatal hernia Colonoscopy Findings: internal hemorrhoids tortuous colon Interim: Swallowing no better but chewing more and taking his time on pantoprazoel 20 mg no nausea no satiety or abdo pain EXAM: GENERAL: The patient is well developed and nontoxic. A/P: 1/ dysphagia, ddx; schatzki ring, worsening hiatal hernia, peptic stricture, suboptimal reflux control or combination fo these 2/ hx of tubular adenoma PLAN: 1/ offered manometry testing and impedance study but he wants to avoid 2/ will optimize PPI BId dosing for 3-6 months then titrate down depending on response [facility] Medical History (Updated 06/10/23 @ 00:00 by Edil Robins) Ascending aorta dilatation Ascending aortic aneurysm Elevated cholesterol Essential hypertension HTN (hypertension) REI on CPAP SVT (supraventricular tachycardia) Surgical History (Updated 05/15/23 @ 11:39 by Alysha Barrientos RN) History of esophagogastroduodenoscopy (EGD) History of meniscectomy of left knee Hx of colonoscopy Hx of meniscectomy of right knee Family History Father CHF (congestive heart failure) Vascular disease HTN (hypertension) CVD (cardiovascular disease) Diabetes mellitus Mother Stroke Brother HTN (hypertension) High cholesterol Blocked artery Sister HTN (hypertension) Son No problems noted. Daughter No problems noted. Social History Housing: House Alcohol intake: current Alcohol intake frequency: a few times a week Patient Tobacco Use Status: Never used Tobacco e-Cigarette/Vaping Use: Never Used Second Hand Smoke Exposure: No service: No Current occupational status: retired Cognitive needs: No Hearing needs: No Vision needs: No Assessment & Plan Assessment & Plan (1) Dysphagia: Code(s): R13.10 - Dysphagia, unspecified Medications: New pantoprazole 40 mg PO DAILY 90 tabs 1RF Telehealth Telehealth Location of provider rendering services: practice address Location of patient: address on file Patient Identification confirmed using: Name, : Yes Telehealth method: video Patient verbally consented to treatment: Yes Patient verbally consented to billing insurance company: Yes Patient informed of any privacy concerns related to visit: Yes Minutes spent on Phone/Video with Pt.: 8 Coding Level of Care Code Tele Est Pt Level 3 (03489) Diagnoses Dysphagia R13.10
== END 2023-07-13 14:16 | disposition home or self-care (01) ==
LOC: HO.HGI 12:53
PROVIDERS: PCP Nurse Practitioner Family; Visit Provider Internal Medicine Gastroenterology
DX: R13.10 Dysphagia, unspecified (principal)
CPT/HCPCS: 99213

== ENCOUNTER → 2023-07-13 12:53 | Outpatient (BNVA) | payer OTHER, SELFPAY | PROVIDERS: PCP Nurse Practitioner Family; Visit Provider Internal Medicine Gastroenterology ==

== ENCOUNTER 2024-02-02 08:45 | Outpatient (REF) | payer OTHER, SELFPAY ==
[2024-02-02 11:26] LABS: Appearance Urine Clear; Color Urine Yellow; Glucose Urine UA Negative (Negative); Leukocyte Esterase Urine Negative (Negative); Nitrite Urine Negative (Negative); PH 5.5 (5.0-9.0); Specific Gravity - Urine 1.025 (1.005-1.025); UMIC TRIGGER UACC YES; Urine Blood Small (1+) (Negative); Urine Ketones Negative (Negative); Urine Protein Negative (Neg-Trace)
[2024-02-02 11:35] LABS: MANUAL DIFF FLAG NO
[2024-02-02 11:38] LABS: Bacteria Urine None Seen (None Seen); Hyaline Casts Urine 0-2 /LPF (0-2); Squamous Epithelial Cell Urine 0-2 /HPF (0-2); WBC Urine 0-5 /HPF (0-5)
[2024-02-02 11:42] LABS: Basophils Absolute Auto 0.1 X10*3/uL (0.0-0.2); Basophils Percent Auto 0.7 % (0-2); Eosinophils Absolute Auto 0.2 X10*3/uL (0.0-0.4); Eosinophils Percent Auto 2.7 % (0-4); Hematocrit 43.4 % (42.0-52.0); Hemoglobin 14.4 g/dl (14.0-18.0); Imm Gran Abs Auto 0.02 X10*3/uL (0.00-0.03); Imm Gran Pct Auto 0.3 % (0.0-0.4); Lymphocytes Percent Auto 28.3 % (20-40); Mean Corpuscular HGB Conc 33.2 g/dl (31.0-36.0); Mean Corpuscular Hemoglobin 29.1 pg (27.0-33.0); Mean Corpuscular Volume 87.9 fL (80.0-98.0); Mean Platelet Volume 8.5 fL (9.4-12.4); Monocytes Absolute Auto 0.5 X10*3/uL (0.1-1.2); Monocytes Percent Auto 6.8 % (2-11); Neutrophils Absolute Auto 4.3 x10*3/uL (2.0-8.3); Neutrophils Percent Auto 61.2 % (45-73); Platelet Count 247 X10*3/uL (160-400); Red Blood Count 4.94 X10*6/uL (4.60-5.80); Red Cell Distribution Width 13.6 % (11.0-16.0)
[2024-02-02 12:16] LABS: Prostate Specific Antigen Scr 0.55 ng/mL (<0.05-4.0)
[2024-02-02 12:25] LABS: Alanine Aminotransferase 20 U/L (0-40); Albumin Level 4.3 g/dL (3.5-5.0); Alkaline Phosphatase 75 U/L (39-117); Anion Gap 10 (12-20); Aspartate Amino Transferase 16 U/L (5-37); Bilirubin Total 0.4 mg/dL (0.0-1.0); Blood Urea Nitrogen 16 mg/dL (9-16); Calcium 9.3 mg/dL (8.4-10.2); Carbon Dioxide 26 mmol/L (22-29); Chloride 109 mmol/L (96-108); Cholesterol 140 mg/dL (<200); Estimated Glomerular Filt Rate > 60; Glucose Fasting 120 mg/dL (60-99); Glucose Random 120 mg/dL (60-115); HDL Cholesterol 36 mg/dL (>40); LDL Cholesterol Calculated 79 mg/dL (<100); Potassium 3.9 mmol/L (3.3-5.1); Sodium 141 mmol/L (135-145); Total Protein 7.3 g/dL (6.5-8.0); Triglycerides 128 mg/dL (<150)
[2024-02-02 12:42] LABS: TSH reflex Free T4 2.28 uIU/mL (0.32-4.0)
== END 2024-02-02 08:46 | disposition home or self-care (01) ==
LOC: HO.HMGCLDS 08:45
PROVIDERS: PCP Nurse Practitioner Family; Referring Provider Internal Medicine; Visit Provider Nurse Practitioner Family
DX: Z12.5 Encounter for screening for malignant neoplasm of prostate (principal); I10 Essential (primary) hypertension; I71.20 Thoracic aortic aneurysm, without rupture, unspecified
CPT/HCPCS: 36415; 80048; 80053; 80061; 81001; 84153; 84443; 85025

== ENCOUNTER 2024-02-15 10:56 | Outpatient (AMB) | payer OTHER, SELFPAY ==
[2024-02-15 11:09] VITALS: BP 122/70; PULSE 62; BMI 35.9
--- NOTE | 2024-02-15 11:09 | MHC.OFFVIS ---
Intake Vital Signs 02/15/24 11:09 Height 6 ft Weight 264 lb 8.875 oz BMI 35.9 BP 122/70 Blood Pressure Location Lt brachial Position Sitting Pulse 62 Pulse Source Monitor Intake Visit Reasons: follow up [facility] Allergies No Known Allergies Allergy (Verified 06/09/23 17:35) Medication List - Last Reconciled 02/15/24 by Gamal Roque MD aspirin 81 mg PO DAILY 90 days cholecalciferol (vitamin D3) 25 mcg PO DAILY losartan 100 mg PO DAILY pantoprazole 40 mg PO DAILY rosuvastatin 40 mg PO DAILY HPI HPI Comments History of Present Illness Details Edward returns for follow-up regarding ascending aortic aneurysm and history of SVT. Overall, he is generally doing fine. No complaints like angina or shortness of breath or palpitations or in fact anything cardiac sounding. Normal lifestyle with no limitations. [facility] Medical History (Updated 02/15/24 @ 11:47 by Gamal Roque MD) Elevated cholesterol REI on CPAP Essential hypertension Ascending aortic aneurysm SVT (supraventricular tachycardia) HTN (hypertension) Ascending aorta dilatation Surgical History (Updated 05/15/23 @ 11:39 by Alysha Barrientos RN) Hx of meniscectomy of right knee History of meniscectomy of left knee Hx of colonoscopy History of esophagogastroduodenoscopy (EGD) Family History Father CHF (congestive heart failure) Vascular disease HTN (hypertension) CVD (cardiovascular disease) Diabetes mellitus Mother Stroke Brother HTN (hypertension) High cholesterol Blocked artery Sister HTN (hypertension) Son No problems noted. Daughter No problems noted. Social History Housing: House Alcohol intake: current Alcohol intake frequency: a few times a week Patient Tobacco Use Status: Never used Tobacco e-Cigarette/Vaping Use: Never Used Second Hand Smoke Exposure: No service: No Current occupational status: retired Cognitive needs: No Hearing needs: No Vision needs: No Review of Systems Const Denies weakness ENT Denies dizziness Card Denies chest pain, Denies chest pain with activity, Denies syncope, Denies rapid heart rate, Denies pedal edema, Denies edema, Denies leg edema, Denies lightheadedness, Denies palpitations, Denies dyspnea, Denies dyspnea on exertion and Denies orthopnea Resp Denies cough, Denies dyspnea and Denies dyspnea on exertion GI Denies hematochezia and Denies change in stool character Musc Denies abnormal gait, Denies muscle cramps, Denies muscle weakness, Denies numbness, Denies radiating pain into limb and Denies tingling Neuro Denies abnormal gait, Denies dizziness, Denies syncope, Denies numbness, Denies tingling and Denies weakness Endo Denies palpitations Physical Exam Vital Signs: Last Vital Signs Pulse 62 02/15/24 11:09 BP 122/70 02/15/24 11:09 BMI result Body Mass Index 35.9 Const General: comfortable and no acute distress Orientation/consciousness: patient oriented x3 HEENT Other: Unremarkable Head: Yes normal to inspection Neck Neck: Yes normal visual inspection Chest Chest palpation & inspection: normal inspection of the chest Resp Auscultation: clear to auscultation bilaterally Cardio Palpation: normal PMI Heart sounds: S1 normal heart sound present, S2 normal heart sound present, no gallops, no murmurs and no rubs GI Palpation (GI): Soft to palpation Back/Spine/Pelvis Other: unremarkable Skin General skin exam: no rashes or lesions noted Neuro General: patient oriented x3 Extrem General: Yes normal to inspection Psych Mental Status: mental status grossly normal Office Procedures EKG Details: EKG with that is good sinus rhythm at 62/Min; Mobitz type 1 second-degree heart block. [id number], Complete Assessment & Plan Assessment & Plan (1) Ascending aortic aneurysm: Code(s): I71.2 - Thoracic aortic aneurysm, without rupture Plan: In the chest CTA from 01/2024, ascending aortic size is stable at 4.4 cm. These similar to prior studies. In prior coronary CTA, no hemodynamically significant CAD. In the last echocardiogram from 2021, ascending aortic size was 4.7 cm, much different from the CT results. As there is discrepancy between CT and echocardiographic measurements, we will just stay with CT only for future. (2) Essential hypertension: Code(s): I10 - Essential (primary) hypertension Plan: Stable on losartan. (3) REI on CPAP: Code(s): G47.33 - Obstructive sleep apnea (adult) (pediatric); Z99.89 - Dependence on other enabling machines and devices Plan: Not interested in using CPAP as it is very inconvenient. He is aware of cardiovascular effects from this. We again discussed about this today. (4) SVT (supraventricular tachycardia): Comment: ablation Code(s): I47.1 - Supraventricular tachycardia Plan: s/p ablation. No recurrences. (5) Second degree heart block: Code(s): I44.1 - Atrioventricular block, second degree Plan: He has Mobitz type 1 second-degree heart block. We discussed implications from his weight as well as untreated sleep apnea and potentially progression to more severe conduction system disease requiring pacemaker. He should make every attempt to lose some weight which will help with sleep apnea as he does not use CPAP either. We had a long conversation about this today. We will check Holter before next visit. However, clinically does not have any dizziness or presyncope. Orders: Orders ECG 3 day holter monitor 6 Months I44.1 - Atrioventricular block, second degree Coding Level of Care Code Est Pt Level 4 (99614) Diagnoses Ascending aortic aneurysm I71.2 Essential hypertension I10 REI on CPAP G47.33; Z99.89 SVT (supraventricular tachycardia) I47.1 Second degree heart block I44.1 CPT Codes EKG - CPT: 55645-[id number], Complete ([id number])
== END 2024-02-15 11:28 | disposition home or self-care (01) ==
PROVIDERS: PCP Nurse Practitioner Family; Visit Provider Internal Medicine
DX: I71.20 Thoracic aortic aneurysm, without rupture, unspecified (principal); I10 Essential (primary) hypertension; G47.33 Obstructive sleep apnea (adult) (pediatric); Z99.89 Dependence on other enabling machines and devices; I47.10 Supraventricular tachycardia, unspecified; I44.1 Atrioventricular block, second degree
CPT/HCPCS: 93010; 99214

== ENCOUNTER → 2024-02-15 10:56 | Outpatient (BNVA) | payer OTHER, SELFPAY | PROVIDERS: PCP Nurse Practitioner Family; Visit Provider Internal Medicine | DX: I71.40 Abdominal aortic aneurysm, without rupture, unspecified (principal); I47.10 Supraventricular tachycardia, unspecified; I44.1 Atrioventricular block, second degree; I10 Essential (primary) hypertension; G47.33 Obstructive sleep apnea (adult) (pediatric); Z79.899 Other long term (current) drug therapy; Z99.89 Dependence on other enabling machines and devices | CPT/HCPCS: 93005 ==

== ENCOUNTER 2024-03-23 07:46 | Outpatient (REF) | payer OTHER, SELFPAY ==
--- NOTE | ~2024-03-23 | CT_ITS ---
EXAMINATION: CT ABDOMEN AND PELVIS WITHOUT AND WITH CONTRAST CLINICAL INFORMATION: Microscopic hematuria COMPARISON: 06/09/2023 TECHNIQUE: Noncontrast CT of the abdomen and pelvis is performed followed by split bolus contrast-enhanced images using 85 mL Omnipaque 350 contrast.? Postcontrast imaging is performed during the combined nephrogram and excretion phase. Sagittal and coronal reformatted images were obtained on the technologist's workstation for both the precontrast and postcontrast phases. This CT examination was performed using dose optimization techniques as appropriate, variously including the following: *Automated exposure control *Adjustment of mA and/or kV according to patient size (this includes techniques or standardized protocols for targeted exams where dose is matched to indication/reason for exam; i.e. extremities or head) *Use of iterative reconstruction technique DLP: 1322 mGy-cm FINDINGS: PREPRESS STRIPPER: Nonobstructive bowel pattern. LUNG BASES: The visualized lung bases are unremarkable. LIVER, GALLBLADDER, AND BILIARY TREE: Diffuse mild hypoattenuation to the liver parenchyma. No focal hepatic lesion or biliary ductal dilatation is present. 1.1 cm dependent gallstone in otherwise unremarkable gallbladder. PANCREAS: Unremarkable. SPLEEN: Unremarkable. ADRENAL GLANDS: Unremarkable. KIDNEYS AND URETERS: The kidneys are normal in size, shape, and attenuation. Right kidney measures 12 cm in longest sagittal projection, left measures 12.6 cm. 4 mm left mid/lower pole nonobstructing renal calculus. No hydroureteronephrosis. Nonspecific bilateral perinephric stranding. No renal parenchymal lesions. No filling defects identified in the intrarenal collecting systems or contrast-filled ureters. BLADDER: Moderately distended. Irregularity at the midline bladder base. GASTROINTESTINAL TRACT: Decompressed stomach. Nonobstructive bowel pattern. Unremarkable terminal ileum and appendix. Mild fecal retention. ABDOMINAL WALL: Small fat filled umbilical and bilateral inguinal hernias. LYMPH NODES: Normal. VASCULAR: Atherosclerotic calcifications nonaneurysmal aorta. Unremarkable inferior vena cava and iliac veins. Patent portal system. PELVIC VISCERA: Prostate calcifications. OSSEUS STRUCTURES: No suspicious osseous lesions. CT/CT urogram IMPRESSION: No renal, intrarenal collecting system or ureteral abnormalities. 4 mm nonobstructing left renal calculus. Inferior bladder wall irregularity could be due to adjacent prostate or focal wall thickening. Sessile lesion not entirely excluded. Cholelithiasis without other signs CT evidence of acute cholecystitis.
[2024-03-23] MEDS: iohexoL 350 MG/ML 100 ML INFUS..BTL IV (08:50)
[2024-03-23 16:26] LABS: Creatinine POC 0.8 mg/dL (0.5-1.4); GFR POC > 60
== END 2024-03-23 07:47 | disposition home or self-care (01) ==
LOC: HO.CT 07:46
PROVIDERS: PCP Nurse Practitioner Family; Visit Provider Nurse Practitioner Family
DX: R31.29 Other microscopic hematuria (principal)
CPT/HCPCS: 74178; 82565; Q9967

== ENCOUNTER 2024-03-28 11:20 | Outpatient (AMB) | payer OTHER, SELFPAY ==
--- NOTE | 2024-03-28 11:29 | MHC.OFFVIS ---
Intake Visit Reasons: microscopic hematuria Intake Note: New Patient presents for initial visit for microscopic hematuria Urology Medications: none Blood Thinner: aspirin Smoker: never Pit Inspector Required: No Accompanied by: Self / Same As Patient Allergies No Known Allergies Allergy (Verified 03/28/24 11:58) Medication List - Last Reconciled 03/28/24 by RUFINO Barlow aspirin 81 mg PO DAILY 90 days cholecalciferol (vitamin D3) 25 mcg PO DAILY losartan 100 mg PO DAILY pantoprazole 40 mg PO DAILY rosuvastatin 40 mg PO DAILY HPI Comments Details: Yemi Purcell is a very pleasant 63-year-old male patient of Dr. Guillen. He has a past medical history of hypercholesteremia, hypertension, obstructive sleep apnea on CPAP, ascending aortic aneurysm, and SVT s/p ablation. He presents to the office today as a new patient for microscopic hematuria. In discussion with the patient today he reports having followed up with his PCP at which time microscopic hematuria was noted and a CT urogram was ordered and performed. These results were reviewed with the patient today. The kidneys are normal in size, shape, and attenuation. 4 mm left mid/lower pole nonobstructing renal calculus. No hydroureteronephrosis. The bladder is markedly distended. Irregularity at the midline bladder base. He otherwise offers no urological issues or concerns at this time. In office urinalysis results reviewed with the patient today no microscopic hematuria noted. Discussed at length potential causes for microscopic hematuria. When asked he denies any known chemical exposure and or smoking history. 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 He otherwise denies urinary urgency, urinary frequency, incontinence, nocturia, hematuria, dysuria, foul smelling urine, changes to urinary stream, flank pain, fever, and or chills. He is happy with his current voiding parameters. In review of patient's chart it appears PSA was ordered and performed. These results reviewed with the patient today. 02/06 0.6. PFSH Medical History Elevated cholesterol REI on CPAP Essential hypertension Ascending aortic aneurysm SVT (supraventricular tachycardia) HTN (hypertension) Ascending aorta dilatation Surgical History Hx of meniscectomy of right knee History of meniscectomy of left knee Hx of colonoscopy History of esophagogastroduodenoscopy (EGD) Family History Father CHF (congestive heart failure) Vascular disease HTN (hypertension) CVD (cardiovascular disease) Diabetes mellitus Mother Stroke Brother HTN (hypertension) High cholesterol Blocked artery Sister HTN (hypertension) Son No problems noted. Daughter No problems noted. Social History Housing: House Alcohol intake: current Alcohol intake frequency: a few times a week Patient Tobacco Use Status: Never used Tobacco e-Cigarette/Vaping Use: Never Used Second Hand Smoke Exposure: No service: No Current occupational status: retired Cognitive needs: No Hearing needs: No Vision needs: No Review of Systems Const Reports no additional complaints Eyes Reports no additional complaints ENT Reports no additional complaints Card Reports as per HPI Resp Reports as per HPI GI Reports no additional complaints Reports as per HPI Musc Reports no additional complaints Neuro Reports no additional complaints Psych Reports no additional complaints Endo Reports no additional complaints Hardik/Lymph Reports no additional complaints Aller/Immun Reports no additional complaints Physical Exam Const General: cooperative, healthy appearing, comfortable, no acute distress, well developed, alert and awake Nutritional Appearance: overweight Orientation/consciousness: patient oriented x3 Limitations: no limitations HEENT Head: Yes normal to inspection, Yes normocephalic and Yes atraumatic Ears: hearing grossly normal bilaterally Eyes General: appearance normal, both eyes and all related structures Neck Neck: Yes normal visual inspection and Yes trachea midline Chest Chest palpation & inspection: normal inspection of the chest Resp Effort & Inspection: normal respiratory effort and able to speak in complete sentences Cardio Rate: regular rate GI Inspection: Yes normal to inspection General: Yes no CVA tenderness Back/Spine/Pelvis Back: no CVA tenderness Skin General skin exam: no rashes or lesions noted Neuro General: patient oriented x3 Extrem General: Yes normal to inspection Psych Appearance: grossly normal and well kempt Mental Status: mental status grossly normal Speech and movement: Normal speech and movement present and Clear speech present Affect: normal affect Attitude: cooperative Thought process: Normal thought process present Thought content: Normal thought content present Insight: Fair insight present (Psych) Judgement: Fair judgement present (Psych) Results AMB Urinalysis, Automated UA Leukoctes 0 Gwendolyn/uL Last Edit by Aneudye [employer] on 03/28/24 11:41 UA Nitrite Last Edit by [email or web address] on 03/28/24 11:41 UA Urobilinogen 0.2 mg/dL Last Edit by Pulse [employer] on 03/28/24 11:41 UA Protein 15 mg/dL Last Edit by [employer] on 03/28/24 11:41 UA pH 5.5 Last Edit by [email or web address] on 03/28/24 11:41 UA Blood 0 [place]/uL Last Edit by [email or web address] on 03/28/24 11:41 UA Specific Yolyn 1.025 Last Edit by [email or web address] on 03/28/24 11:41 UA Ketone Negative Last Edit by [email or web address] on 03/28/24 11:41 UA Bilirubin 0 mg/dL Last Edit by [email or web address] on 03/28/24 11:41 UA Glucose 0 mg/dL Last Edit by [email or web address] on 03/28/24 11:41 Results Reviewed Results Reviewed: Laboratory Last Values Urine pH (Auto) 5.5 03/28/24 11:34 Specific Yolyn (Auto) 1.025 03/28/24 11:34 Urine Protein (Auto) 15 mg/dL 03/28/24 11:34 Glucose (UA)(Auto) 0 mg/dL 03/28/24 11:34 Urine Ketones (Auto) Negative 03/28/24 11:34 Urine Blood (Auto) 0 [place]/uL 03/28/24 11:34 Urine Bilirubin (Auto) 0 mg/dL 03/28/24 11:34 Urine Urobilinogen (Auto) 0.2 mg/dL 03/28/24 11:34 Leukocyte Esterase (Auto) 0 Gwendolyn/uL 03/28/24 11:34 Date of Service: 03/23/24 EXAMINATION: CT ABDOMEN AND PELVIS WITHOUT AND WITH CONTRAST FINDINGS: 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 LUNG BASES: The visualized lung bases are unremarkable. LIVER, GALLBLADDER, AND BILIARY TREE: Diffuse mild hypoattenuation to the liver parenchyma. No focal hepatic lesion or biliary ductal dilatation is present. 1.1 cm dependent gallstone in otherwise unremarkable gallbladder. PANCREAS: Unremarkable. SPLEEN: Unremarkable. ADRENAL GLANDS: Unremarkable. KIDNEYS AND URETERS: The kidneys are normal in size, shape, and attenuation. Right kidney measures 12 cm in longest sagittal projection, left measures 12.6 cm. 4 mm left mid/lower pole nonobstructing renal calculus. No hydroureteronephrosis. Nonspecific bilateral perinephric stranding. No renal parenchymal lesions. No filling defects identified in the intrarenal collecting systems or contrast-filled ureters. BLADDER: Moderately distended. Irregularity at the midline bladder base. GASTROINTESTINAL TRACT: Decompressed stomach. Nonobstructive bowel pattern. Unremarkable terminal ileum and appendix. Mild fecal retention. ABDOMINAL WALL: Small fat filled umbilical and bilateral inguinal hernias. LYMPH NODES: Normal. VASCULAR: Atherosclerotic calcifications nonaneurysmal aorta. Unremarkable inferior vena cava and iliac veins. Patent portal system. PELVIC VISCERA: Prostate calcifications. OSSEUS STRUCTURES: No suspicious osseous lesions. IMPRESSION: No renal, intrarenal collecting system or ureteral abnormalities. 4 mm nonobstructing left renal calculus. Inferior bladder wall irregularity could be due to adjacent prostate or focal wall thickening. Sessile lesion not entirely excluded. Cholelithiasis without other signs CT evidence of acute cholecystitis. Assessment & Plan Assessment & Plan (1) Microscopic hematuria: Code(s): R31.29 - Other microscopic hematuria Category: Medical (2) Nephrolithiasis: Code(s): N20.0 - Calculus of kidney Category: Medical Plan In office urinalysis results reviewed with the patient today; as noted above; will send for urine cytology. Discussed at length potential causes of microscopic hematuria. Recent CT results reviewed with the patient today; as noted above. Discussed at length potential causes of nephrolithiasis. Discussed further workup with in office cystoscopy versus surveillance monitoring; discussed risks and benefits of these interventions. All questions were answered. Discussed, educated, and stressed the importance of drinking plenty of water daily. Discussed adding 1 oz of lemon juice to water daily. Recent PSA results reviewed with the patient today; as noted above. Patient otherwise denies any bothersome urinary issues or concerns. He reports be happy with current voiding parameters. Will continue with surveillance monitoring at this time. Will obtain retroperitoneal ultrasound in 1 year. Follow-up in 1 year with imaging to be completed prior; or sooner with any issues, concerns, and or questions. Orders: Orders AMB Urinalysis Automated 03/28/24 Z13.9 - Encounter for screening, unspecified Urine Cytology 03/28/24 R31.29 - Other microscopic hematuria US retroperitoneal comp 1 Year N20.0 - Calculus of kidney Patient Instructions: The patient had an opportunity to ask questions regarding the treatment plan. All questions were answered. Physical exam, labs, and imaging were discussed and reviewed in detail. As well as risks, benefits, and discussion of treatment choices. No major barriers to understanding were identified. The patient expressed understanding and agreement with the above treatment plan. The patient was made aware they should contact our office by phone for worsening of their current condition, the appearance of new symptoms, or with any questions or concerns. Compliance is encouraged with any medications and follow up testing that is ordered. It is a privilege to be allowed the opportunity to participate in? your urological care.? Again, if you have any questions or concerns If you have any questions or concerns please do not hesitate to contact me. The office is [phone]. This note is constructed using voice recognition software. While every effort has been made to ensure accuracy sandwich machine operator errors may have been included. Yours sincerely, RUFINO Barlow Coding Level of Care Code New Pt Level 3 (84367) Diagnoses Microscopic hematuria R31.29 Nephrolithiasis N20.0
== END 2024-03-28 11:59 | disposition home or self-care (01) ==
PROVIDERS: PCP Nurse Practitioner Family; Visit Provider Nurse Practitioner Family
DX: R31.29 Other microscopic hematuria (principal); N20.0 Calculus of kidney
CPT/HCPCS: 99203

== ENCOUNTER 2024-03-28 11:20 | Outpatient (REF) | payer OTHER, SELFPAY ==
[2024-03-28 16:47] LABS: Urine Cytology See Pathology rpt
== END 2024-03-28 11:21 | disposition home or self-care (01) ==
LOC: HO.LNP 11:20
PROVIDERS: PCP Nurse Practitioner Family; Visit Provider Nurse Practitioner Family
DX: R31.29 Other microscopic hematuria (principal); N20.0 Calculus of kidney
CPT/HCPCS: 81003; 88112

== ENCOUNTER → 2024-07-25 07:53 | Outpatient (REF) | payer BC, SELFPAY ==
--- NOTE | 2024-07-25 07:57 | HM_ITS ---
* Total monitoring time 3 days. * Underlying rhythm is sinus with an average rate of 64/Min. * Rare ventricular ectopy. * Evidence of Mobitz type 1 second-degree heart block, including during daytime hours. * No patient markers or diary events. MTDD
== END ==
LOC: HO.CARD 07:53
PROVIDERS: PCP Nurse Practitioner Family; Visit Provider Internal Medicine
DX: I44.1 Atrioventricular block, second degree (principal)
CPT/HCPCS: 93242

== ENCOUNTER → 2024-07-25 07:57 | Outpatient (BNV) | payer BC, SELFPAY | PROVIDERS: PCP Nurse Practitioner Family; Visit Provider Internal Medicine | DX: I44.1 Atrioventricular block, second degree (principal) | CPT/HCPCS: 93244 ==

== ENCOUNTER 2024-11-03 11:21 | Outpatient (AMB) | payer BC, SELFPAY ==
[2024-11-03 12:31] VITALS: BP 122/62; PULSE 68; BMI 35.9
--- NOTE | 2024-11-03 12:31 | A.OFFVIS_ITS ---
Vital Signs 11/03/24 12:31 Height 6 ft Weight 264 lb 8.875 oz BMI 35.9 BP 122/62 Blood Pressure Location Lt brachial Position Sitting Pulse 68 Pulse Source Pulse Oximeter Intake Visit Reasons: 6mth s/p holter Allergies No Known Allergies Allergy (Verified 03/28/24 11:58) Medication List - Last Reconciled 11/03/24 by Gamal Roque MD aspirin 81 mg PO DAILY 90 days cholecalciferol (vitamin D3) 25 mcg PO DAILY CPAP face mask and supplies New sleep study scheduled for Nov 2024 losartan 100 mg PO DAILY pantoprazole 40 mg PO DAILY rosuvastatin 40 mg PO DAILY HPI Comments Details: Yemi returns for follow-up regarding ascending aortic aneurysm and history of SVT. Overall, he states he feels good. No complaints like angina or shortness of breath or in fact anything cardiac sounding. He does not have any other specific concerns. Normal lifestyle without any limitations. [facility] Medical History Elevated cholesterol REI on CPAP Essential hypertension Ascending aortic aneurysm SVT (supraventricular tachycardia) HTN (hypertension) Ascending aorta dilatation Surgical History Hx of meniscectomy of right knee History of meniscectomy of left knee Hx of colonoscopy History of esophagogastroduodenoscopy (EGD) Family History Father CHF (congestive heart failure) Vascular disease HTN (hypertension) CVD (cardiovascular disease) Diabetes mellitus Mother Stroke Brother HTN (hypertension) High cholesterol Blocked artery Sister HTN (hypertension) Son No problems noted. Daughter No problems noted. Social History Housing: House Alcohol intake: current Alcohol intake frequency: a few times a week Patient Tobacco Use Status: Never used Tobacco e-Cigarette/Vaping Use: Never Used Second Hand Smoke Exposure: No service: No Current occupational status: retired Cognitive needs: No Hearing needs: No Vision needs: No Review of Systems Const Denies weakness ENT Denies dizziness Card Denies chest pain, Denies chest pain with activity, Denies syncope, Denies rapid heart rate, Denies pedal edema, Denies edema, Denies leg edema, Denies lightheadedness, Denies palpitations, Denies dyspnea, Denies dyspnea on exertion and Denies orthopnea Resp Denies cough, Denies dyspnea and Denies dyspnea on exertion GI Denies hematochezia and Denies change in stool character Musc Denies abnormal gait, Denies muscle cramps, Denies muscle weakness, Denies numbness, Denies radiating pain into limb and Denies tingling Neuro Denies abnormal gait, Denies dizziness, Denies syncope, Denies numbness, Denies tingling and Denies weakness Endo Denies palpitations Physical Exam Vital Signs: Last Vital Signs Pulse 68 11/03/24 12:31 BP 122/62 11/03/24 12:31 BMI result Body Mass Index 35.9 Const General: comfortable and no acute distress Orientation/consciousness: patient oriented x3 HEENT Other: Unremarkable Head: Yes normal to inspection Neck Neck: Yes normal visual inspection Chest Chest palpation & inspection: normal inspection of the chest Resp Auscultation: clear to auscultation bilaterally Cardio Palpation: normal PMI Heart sounds: S1 normal heart sound present, S2 normal heart sound present, no gallops, no murmurs and no rubs GI Palpation (GI): Soft to palpation Back/Spine/Pelvis Other: unremarkable Skin General skin exam: no rashes or lesions noted Neuro General: patient oriented x3 Extrem General: Yes normal to inspection Psych Mental Status: mental status grossly normal Assessment & Plan Assessment & Plan (1) Ascending aortic aneurysm: Code(s): I71.2 - Thoracic aortic aneurysm, without rupture Category: Medical Plan: In the chest CTA from 01/2024, ascending aortic size is stable at 4.4 cm. Similar to prior studies. In prior coronary CTA, no hemodynamically significant CAD. In the last echocardiogram from 2021, ascending aortic size was 4.7 cm, much different from the CT results. As there is discrepancy between CT and echocardiographic measurements, we will just stay with CT only for future. Repeat another CT before next appointment. (2) Essential hypertension: Code(s): I10 - Essential (primary) hypertension Category: Medical Plan: Stable on Losartan. (3) REI on CPAP: Code(s): G47.33 - Obstructive sleep apnea (adult) (pediatric); Z99.89 - Dependence on other enabling machines and devices Category: Medical Plan: For the last few months, he has been on CPAP. (4) SVT (supraventricular tachycardia): Comment: ablation Code(s): I47.1 - Supraventricular tachycardia Category: Medical Plan: s/p ablation. No recurrences. (5) Second degree heart block: Code(s): I44.1 - Atrioventricular block, second degree Category: Medical Plan: On Holter, he has evidence of Mobitz type 1 second-degree heart block. Likely related to his weight as well as sleep apnea. He does not have any symptoms like presyncope but discussed about that. At the current time, no indication for pacemaker. However, if the conduction system disease progresses, we will need to reassess. Patient is aware of this. Orders: Orders Basic Metabolic Panel 6 Months I10 - Essential (primary) hypertension CT angio chest aorta 6 Months I71.2 - Thoracic aortic aneurysm, without rupture Coding Level of Care Code Est Pt Level 4 (77431) Diagnoses Ascending aortic aneurysm I71.2 Essential hypertension I10 REI on CPAP G47.33; Z99.89 SVT (supraventricular tachycardia) I47.1 Second degree heart block I44.1
== END 2024-11-03 12:47 | disposition home or self-care (01) ==
PROVIDERS: PCP Nurse Practitioner Family; Visit Provider Internal Medicine
DX: I71.20 Thoracic aortic aneurysm, without rupture, unspecified (principal); I10 Essential (primary) hypertension; G47.33 Obstructive sleep apnea (adult) (pediatric); Z99.89 Dependence on other enabling machines and devices; I47.10 Supraventricular tachycardia, unspecified; I44.1 Atrioventricular block, second degree
CPT/HCPCS: 99214

== ENCOUNTER → 2024-11-03 11:21 | Outpatient (BNVA) | payer BC, SELFPAY | PROVIDERS: PCP Nurse Practitioner Family; Visit Provider Internal Medicine ==

== ENCOUNTER 2024-11-28 12:25 | Outpatient (AMB) | payer BC, SELFPAY ==
--- NOTE | 2024-11-28 12:37 | A.OFFVIS_ITS ---
Vital Signs 11/28/24 12:40 Height 6 ft Weight 275 lb 4 oz BMI 37.3 BP 128/70 Blood Pressure Location Lt brachial Position Sitting Pulse 66 Pulse Source Pulse Oximeter Pulse Oximetry (%) 99 Oxygen Delivery Method Room Air Intake Visit Reasons: K-BO-Evfeqfijnlf sleep apnea Intake Note: Patient presents for a new patient consultation for REI. Accompanied by: Self / Same As Patient Allergies No Known Allergies Allergy (Verified 11/28/24 12:40) HPI Comments Details: 64 year old male referred to us by PCP for sleep evaluation. Goes to bed at 10pm and gets up at 7am with 1-2 bathroom breaks. He denies morning headaches, parasomnias, abnormal sleep behaviors, uses his old CPAP machine. He does snore and gasp for air if and when he is not able to use his CPAP. He denies, RLS, numbness, tingling, cramps or spasms. He manages his blood pressure and is followed by Cardiology every 6 months for AA (thoracic). Memory, Mood, diet is stable. Denies anxiety, depression. 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 [facility] Medical History Elevated cholesterol REI on CPAP Essential hypertension Ascending aortic aneurysm SVT (supraventricular tachycardia) HTN (hypertension) Ascending aorta dilatation Surgical History Hx of meniscectomy of right knee History of meniscectomy of left knee Hx of colonoscopy History of esophagogastroduodenoscopy (EGD) Family History Father CHF (congestive heart failure) Vascular disease HTN (hypertension) CVD (cardiovascular disease) Diabetes mellitus Mother Stroke Brother HTN (hypertension) High cholesterol Blocked artery Sister HTN (hypertension) Son No problems noted. Daughter No problems noted. Social History Housing: House Alcohol intake: current Alcohol intake frequency: a few times a week Patient Tobacco Use Status: Never used Tobacco e-Cigarette/Vaping Use: Never Used Second Hand Smoke Exposure: No service: No Current occupational status: retired Cognitive needs: No Hearing needs: No Vision needs: No Review of Systems Const All systems reviewed & are unremarkable except as noted in HPI and below Physical Exam Vital Signs: Last Vital Signs Pulse 66 11/28/24 12:40 BP 128/70 11/28/24 12:40 Pulse Ox 99 11/28/24 12:40 Oxygen Delivery Method Room Air 11/28/24 12:40 BMI result Body Mass Index 37.3 Const General: cooperative, comfortable and no acute distress Orientation/consciousness: patient oriented x3 HEENT Teeth and gingiva: other ([place] score of 4 ) Eyes Pupils: Equal, round and reactive pupils present Neuro General: patient oriented x3 Cranial nerves: Yes CN's II-XII intact bilaterally, Yes Facial sensation intact/muscles of mastication intact, Yes Equal, round and reactive pupils present, Yes Bilaterally intact EOM present, Yes Nystagmus not present, Yes Normal facial strength present, Yes Midline tongue present, Yes Ability to bilaterally rotate head present and Yes Ability to bilaterally elevate shoulders present Cognition (Neuro): normal cognition Gait exam (Neuro): Normal gait present Motor exam (neuro): 5/5 motor strength present throughout and Pronator motor function not present Deep tendon reflexes (DTR's): Right triceps reflex intensity grade: 2+, Left triceps reflex intensity grade: 2+, Rt Biceps (C5, C6): 2+, Left biceps reflex intensity grade: 2+, Right brachioradialis reflex intensity grade: 2+, Left brachioradialis reflex intensity grade: 2+, Right patellar reflex intensity grade: 2+, Left patellar reflex intensity grade: 2+, Right ankle reflex intensity grade: 2+ and Left ankle reflex intensity grade: 2+ Psych Appearance: grossly normal Speech and movement: Normal speech and movement present Affect: normal affect Thought process: Normal thought process present Thought content: Normal thought content present Insight: Good insight present (Psych) Judgement: Good judgement present (Psych) Results Reviewed Results Reviewed: Labs D was low- monitored by PCP on Vit D Labs HDL low - EKG / Holter Monitor Assessment & Plan Assessment & Plan (1) Obstructive sleep apnea: Code(s): G47.33 - Obstructive sleep apnea (adult) (pediatric) Category: Medical (2) Fatigue: Code(s): R53.83 - Other fatigue Category: Medical Qualifiers: Fatigue type: chronic, unspecified Qualified Code(s): R53.82 - Chronic fatigue, unspecified Plan HST: Excessive Daytime Fatigue Monitor BP, as patient has AA thoraci, followed by Cardiology every 6months Follow up in 3 months. Coding Level of Care Code New Pt Level 3 (90210) Diagnoses Obstructive sleep apnea G47.33 Chronic fatigue R53.82 Fatigue type: chronic, unspecified Time Spent (min) 20 Comment Baseline Sleep Questionnaire Difficulty falling asleep: No Difficulty staying asleep?: No Number of arousals: 1-2 Snoring: Yes Witnessed apneas: Yes Gasping arousals: No Nocturia: No GERD: Yes Vivid dreams: No Acting out dreams: No Abnormal behavior in sleep: No Abnormal movements in sleep: No Morning headaches: No Excessive daytime sleepiness: No Daytime naps: Yes Restless legs: No Hallucinations: No Sleep paralysis: No Sleep Study: Yes (2019) CPAP: Yes
[2024-11-28 12:40] VITALS: BP 128/70; PULSE 66; O2SAT 99; BMI 37.3
== END 2024-11-28 13:02 | disposition home or self-care (01) ==
PROVIDERS: PCP Nurse Practitioner Family; Visit Provider Physician Assistant Medical
DX: G47.33 Obstructive sleep apnea (adult) (pediatric) (principal); R53.82 Chronic fatigue, unspecified
CPT/HCPCS: 99203

== ENCOUNTER 2025-02-07 11:18 | Outpatient (AMB) | payer BC, SELFPAY ==
--- NOTE | 2025-02-07 11:27 | A.OFFPC_ITS ---
Vital Signs 02/07/25 11:29 Height 6 ft Weight 274 lb BMI 37.2 BP 130/70 Blood Pressure Location Lt brachial Position Sitting Respiration 17 Pulse 65 Pulse Source Pulse Oximeter Temp 98.3 F Temp Source Oral Pulse Oximetry (%) 98 Oxygen Delivery Method Room Air Intake Visit Reasons: ANNUAL Intake Note: Pt is here today for his PE Allergies No Known Allergies Allergy (Verified 02/07/25 12:24) Medication List - Last Reconciled 02/07/25 by PRICE Sosa- aspirin 81 mg PO DAILY 90 days cholecalciferol (vitamin D3) 25 mcg PO DAILY CPAP face mask and supplies New sleep study scheduled for Nov 2024 losartan 100 mg PO DAILY pantoprazole 40 mg PO DAILY rosuvastatin 40 mg PO DAILY Tobacco use date assessed: 02/07/25 Fall risk assessment: No Falls in past year Last assessed Fall Risk: 02/07/25 Dental Screening Dental Screen Date: 02/07/25 Did you have a dental visit in the last 12 months?: Yes Did you have a dental problem in the last 6 months where you did not have access to dental care?: Yes Was dental information given to patient?: Patient has dentist HPI ANNUAL HPI Details History of Present Illness The patient is a 64-year-old male presenting for a routine physical examination. The patient is actively planning to return to golf, viewing it as beneficial for his weight management. He denies experiencing any chest pain or shortness of breath and reports no current urinary issues. The patient's medical management includes regular consultations with a building principal and urologist. His colon screening remains current. Notably, he has skin lesions on his back that seem to be papillary without concerning features like irregular borders, presenting more like skin tags. Health Maintenance - Colon screening: up to date - Health discussion: Encouragement of ph ysical activity with a focus on returning to golf for weight management Social History - Exercise: Currently plans to increase activity by returning to golf - Weight management: Active plan to janeth ge weight through increased physical activity Review of Systems - Cardiovascular: Denies chest pain - Respiratory: Denies shortness of breat h - Genitourinary: Denies current urinary issues -denies any anxiety or depression, denie s any si or hi Physical Exam General: Cooperative, healthy appearing, comfortable, no acute distress and well developed, obese Orientation: Patient oriented x3 Limitations: No limitations Head: Normal to inspection Ears: Hearing grossly normal bilaterally Nose: Normal external nose present Face and sinus: Normal facial exam Eyes: Appearance normal, both eyes and all related structures Neck: Normal visual inspection and Yes full ROM Respiratory: Normal respiratory effort and able to speak in complete sentences. Clear to auscultation bilaterally Cardiovascular: Regular rate and rhythm. Normal S1 and S2 GI: Normal to inspection. Soft to palpation and nontender Skin: Papillary lesions present, resembling large skin tags, no irregular borders or darker pigmentation (back left anglican) Neuro: Patient oriented x3 Extremities: Normal to inspection Results Plan Today's visit focused on preventive health care. The patient is maintaining an active lifestyle with plans to return to golf, supporting weight management. He regularly consults with a building principal and urologist, and his colon screening is up-to-date. Papillary skin lesions were observed without concerning features, thus needing no immediate action except regular monitoring. Continued engagement in physical activity is encouraged. Discussion Notes In our discussion, I emphasized the importance of maintaining regular physical activity for weight control, and the patient is encouraged to return to golfing. Potential benefits include improved cardiovascular health and weight management. I explained that the current papillary lesions on his back, which resemble skin tags, do not exhibit concerning characteristics and simply require monitoring. We reviewed the significance of regular screenings such as colonoscopies and the need to continue consultations with his specialists to monitor current health conditions. Patient Instructions - Engage in regular physical activity li ke returning to golfing to aid weight management - Monitor papillary lesions on the back; seek care if there are changes in size, color, or shape - Maintain regular consultations with ca rdiology and urology specialists - Keep up with health screenings like co lonoscopies as recommended [facility] Medical History Elevated cholesterol REI on CPAP Essential hypertension Ascending aortic aneurysm SVT (supraventricular tachycardia) HTN (hypertension) Ascending aorta dilatation Surgical History Hx of meniscectomy of right knee History of meniscectomy of left knee Hx of colonoscopy History of esophagogastroduodenoscopy (EGD) Family History Father CHF (congestive heart failure) Vascular disease HTN (hypertension) CVD (cardiovascular disease) Diabetes mellitus Mother Stroke Brother HTN (hypertension) High cholesterol Blocked artery Sister HTN (hypertension) Son No problems noted. Daughter No problems noted. Social History Housing: House Alcohol intake: current Alcohol intake frequency: a few times a week Patient Tobacco Use Status: Never used Tobacco e-Cigarette/Vaping Use: Never Used Second Hand Smoke Exposure: No service: No Current occupational status: retired Cognitive needs: No Hearing needs: No Vision needs: No Questionnaire PHQ-9 Over the last 2 weeks, how often have you been bothered by any of the following problems? 1. Little interest or pleasure in doing things: not at all 2. Feeling down, depressed, or hopeless: not at all 3. Trouble falling or staying asleep, or sleeping too much: not at all 4. Feeling tired or having little energy: not at all 5. Poor appetite or overeating: not at all 6. Feeling bad about yourself - or that you are a failure or have let yourself or your family down: not at all 7. Trouble concentrating on things, such as reading the newspaper or watching television: not at all 8. Moving or speaking so slowly that other people could have noticed. Or the opposite - being so fidgety or restless that you have been moving around a lot more than usual: not at all 9. Thoughts that you would be better off or of hurting yourself in some way: not at all Total score: 0 Source: Developed by Drs. Paddy Nelson, Bryanna Dahl, Epifanio Kumari and colleagues, with an educational lieana from [employer]. Thrive Questionnaire Date Thrive assessed: 01/31/25 I am a: Patient What is your living situation today?: I have a steady place to live Within the past 12 months, did the food you bought not last and you didn't have the money to get more?: Never true Within the past 12 months, did you worry whether your food would run out before you got money to buy more?: Never true Do you have trouble paying for medicines?: No Do you have trouble getting transportation to medical appointments?: No Do you have trouble paying your heating and electricity bill?: No Do you have trouble taking care of your child, family member or friend?: No Do you have trouble with day-to-day activities such as bathing, preparing meals, shopping, managing finances, etc.?: No Are you currently unemployed and looking for a job?: No Are you interested in more education?: No Please select the resources that you would like help with: None Currently or been in a relationship where the following occur: No concerns reported THRIVE Score: 0 AUDIT C Alcohol Use Questionnaire (AUDIT-C) 1. How often do you have a drink containing alcohol?: 2-4 times a month 2. How many drinks containing alcohol do you have on a typical day when you are drinking?: 1 or 2 3. How often do you have six or more drinks on one occasion?: Never Total Score: 2 JOSE-7 AMB Questionnaire JOSE-7 Date JOSE - 7 assessed: 11/26/21 Feeling nervous, anxious, or on edge: 0 = Not at all Not being able to stop or control worryin = Not at all Worrying too much about different things: 0 = Not at all Trouble relaxin = Not at all Being so restless that it is hard to sit still: 0 = Not at all Becoming easily annoyed or irritable: 0 = Not at all Feeling afraid as if something awful might happen: 0 = Not at all Total JOSE-7 score (0-4 normal; 5-9 mild; 10-14 moderate; 15-21 severe): 0 Source: Developed by Drs. Paddy Nelson, Bryanna Dahl, Epifanio Kumari and colleagues, with an educational ileana from [employer]. Physical exam (Primary Care) Vital Signs: Last Vital Signs Temp 98.3 F 02/07/25 11:29 Pulse 65 02/07/25 11:29 Resp 17 02/07/25 11:29 BP 130/70 02/07/25 11:29 Pulse Ox 98 02/07/25 11:29 Oxygen Delivery Method Room Air 02/07/25 11:29 BMI result Body Mass Index 37.2 Tobacco/Smoking Status: Tobacco use Status Tobacco use date assessed 02/07/25 02/07/25 11:32 Patient Tobacco Use Status Never used Tobacco 02/07/25 11:32 e-Cigarette/Vaping Use Never Used 02/07/25 11:32 PHQ-9: PHQ-9 Score PHQ-9: Total score 0 02/07/25 11:32 Thrive Assessment: Date of Thrive Assessment Date Thrive assessed 01/31/25 02/07/25 11:32 Currently or been in a relationship where the following occur: No concerns reported Coding Level of Care Code Est Pt Prev Care >65y(96983) Diagnoses Physical exam Z00.00 Screening PSA (prostate specific antigen) Z12.5 Immunizations incomplete Z28.39 Assessment & Plan Assessment & Plan (1) Physical exam: Code(s): Z00.00 - Encounter for general adult medical examination without abnormal findings Category: Medical (2) Screening PSA (prostate specific antigen): Code(s): Z12.5 - Encounter for screening for malignant neoplasm of prostate Category: Medical (3) Immunizations incomplete: Code(s): Z28.39 - Other underimmunization status Category: Medical Plan . Orders: Orders Complete Blood Count Auto Diff Today Z00.00 - Encounter for general adult medical examination without abnormal findings TSH reflex Free T4 Today Z00.00 - Encounter for general adult medical examination without abnormal findings MMR IgG Measles Mumps Rubella Today Z28.39 - Other underimmunization status Comprehensive [place]. Panel Fast Today Z00.00 - Encounter for general adult medical examination without abnormal findings UA CC w/rflx Micro + Cult Today Z00.00 - Encounter for general adult medical examination without abnormal findings Lipid Panel Today Z00.00 - Encounter for general adult medical examination without abnormal findings Prostate Specific Antigen Scr Today Z12.5 - Encounter for screening for malignant neoplasm of prostate
[2025-02-07 11:29] VITALS: BP 130/70; PULSE 65; RESP 17; TEMP 36.8; O2SAT 98; BMI 37.2
--- OUTSIDE RECORDS SUMMARY | 2025-02-07 14:04 | XMS_ITS | Clinical Summary ---
Author Organization [facility] it Address [address] [place] [address] Care Team Providers Care Customer Quality Specialist Name Role Phone Unavailable Primary Care Provider Unavailabl e Social History Tobacco Use Types Packs/Day Years Used Date Smoking Tobacco: Never Assessed Sex and Gender Information Value Date Recorded Sex Assigned at Not on file Legal Sex Male 2:52 AM EST Gender Identity Not on file Sexual Orientation Not on file Plan of Treatment Health Maintenance Due Date Last Done Comments DTaP,Tdap,and Td Vaccines (1 - Tdap) 1978 Pneumococcal Vaccine: 50+ Ye ars (1 of 1 - PCV) 2009 Zoster Vaccines (1 of 2) 2009 COVID-19 Vaccine ( - 2023-2 5 season) 2024 Influenza Vaccine (#1) 2024 RSV Immunization Patients 60 + Years Old (1 - 1-dose 75+ series) 2034 HIB Vaccines Aged Out No longer eligi ble based on patient's age to complete this topic HPV Vaccines Aged Out No longer eligi ble based on patient's age to complete this topic Hepatitis A Vaccines Aged Out No long er eligible based on patient's age to complete this topic Hepatitis B Vaccines Aged Out No long er eligible based on patient's age to complete this topic IPV Vaccines Aged Out No longer eligi ble based on patient's age to complete this topic MMR Vaccines Aged Out No longer eligi ble based on patient's age to complete this topic Meningococcal ACWY Vaccine Aged Out N o longer eligible based on patient's age to complete this topic Meningococcal B Vacine Aged Out No lo nger eligible based on patient's age to complete this topic Pneumococcal Vaccine: Pediat rics (0 to 5 Years) and At-Risk Patients (6 to 64 Years) Aged Out No longer eligible b ased on patient's age to complete this topic RSV Immunization Patients Un lam 20 months Aged Out No longer eligible b ased on patient's age to complete this topic Varicella Vaccines Aged Out No longer eligible based on patient's age to complete this topic
== END 2025-02-07 12:16 | disposition home or self-care (01) ==
LOC: HO.HMCC 11:18
PROVIDERS: PCP Nurse Practitioner Family; Visit Provider Nurse Practitioner Family
DX: Z00.00 Encounter for general adult medical examination without abnormal findings (principal); Z12.5 Encounter for screening for malignant neoplasm of prostate; Z28.39 Other underimmunization status

== ENCOUNTER 2025-02-07 11:18 | Outpatient (REF) | payer BC, SELFPAY ==
[2025-02-07 13:34] LABS: Appearance Urine Clear; Color Urine Dark Yellow; Glucose Urine UA Negative (Negative); Leukocyte Esterase Urine Negative (Negative); Nitrite Urine Negative (Negative); Specific Gravity - Urine 1.025 (1.005-1.025); Urine Blood Negative (Negative); Urine Ketones Negative (Negative); Urine Protein Negative (Neg-Trace)
[2025-02-07 13:44] LABS: MANUAL DIFF FLAG NO
[2025-02-07 13:51] LABS: Basophils Absolute Auto 0.1 X10*3/uL (0.0-0.2); Basophils Percent Auto 0.8 % (0-2); Eosinophils Absolute Auto 0.1 X10*3/uL (0.0-0.4); Eosinophils Percent Auto 1.4 % (0-4); Hematocrit 41.9 % (42.0-52.0); Hemoglobin 14.1 g/dl (14.0-18.0); Imm Gran Abs Auto 0.03 X10*3/uL (0.00-0.03); Imm Gran Pct Auto 0.4 % (0.0-0.4); Lymphocytes Absolute Auto 2.3 X10*3/uL (1.2-4.9); Lymphocytes Percent Auto 27.4 % (20-40); Mean Corpuscular HGB Conc 33.7 g/dl (31.0-36.0); Mean Corpuscular Hemoglobin 29.1 pg (27.0-33.0); Mean Corpuscular Volume 86.4 fL (80.0-98.0); Mean Platelet Volume 8.3 fL (9.4-12.4); Monocytes Absolute Auto 0.5 X10*3/uL (0.1-1.2); Monocytes Percent Auto 5.7 % (2-11); Neutrophils Absolute Auto 5.4 x10*3/uL (2.0-8.3); Neutrophils Percent Auto 64.3 % (45-73); Platelet Count 277 X10*3/uL (160-400); Red Blood Count 4.85 X10*6/uL (4.60-5.80); Red Cell Distribution Width 13.9 % (11.0-16.0); White Blood Count 8.4 X10*3/uL (4.8-10.8)
[2025-02-07 14:29] LABS: Alanine Aminotransferase 31 U/L (0-40); Albumin Level 4.3 g/dL (3.5-5.0); Anion Gap 12 (12-20); Aspartate Amino Transferase 33 U/L (5-37); Bilirubin Total 0.6 mg/dL (0.0-1.0); Blood Urea Nitrogen 13 mg/dL (9-16); Calcium 9.2 mg/dL (8.4-10.2); Carbon Dioxide 26 mmol/L (22-29); Chloride 108 mmol/L (96-108); Cholesterol 124 mg/dL (<200); Estimated Glomerular Filt Rate > 60; Glucose Fasting 100 mg/dL (60-99); HDL Cholesterol 32 mg/dL (>40); LDL Cholesterol Calculated 60 mg/dL (<100); Potassium 3.7 mmol/L (3.3-5.1); Sodium 142 mmol/L (135-145); Total Protein 7.4 g/dL (6.5-8.0); Triglycerides 163 mg/dL (<150)
[2025-02-07 14:44] LABS: Prostate Specific Antigen Scr 0.74 ng/mL (<0.05-4.0)
[2025-02-07 14:49] LABS: Alkaline Phosphatase 81 U/L (39-117); TSH reflex Free T4 2.07 uIU/mL (0.32-4.0)
[2025-02-08 17:49] LABS: Rubella IgG Antibody 8.14 Index; Rubeola IgG (Measles) >300.00 AU/mL
== END 2025-02-07 11:19 | disposition home or self-care (01) ==
LOC: HO.HMGCLDS 11:18
PROVIDERS: PCP Nurse Practitioner Family; Visit Provider Nurse Practitioner Family
DX: Z00.00 Encounter for general adult medical examination without abnormal findings (principal); Z12.5 Encounter for screening for malignant neoplasm of prostate; Z28.39 Other underimmunization status; E78.00 Pure hypercholesterolemia, unspecified; I10 Essential (primary) hypertension
CPT/HCPCS: 36415; 80053; 80061; 81003; 84153; 84443; 85025; 86735; 86762; 86765

== ENCOUNTER 2025-03-20 11:19 | Outpatient (REF) | payer BC, SELFPAY ==
--- NOTE | ~2025-03-20 | US_ITS ---
CLINICAL HISTORY: N20.0 - Calculus of kidney US Renal Comparison: None Findings: Right kidney normal size and echotexture, 12.2 cm length. Left kidney normal size and echotexture, 13.7 cm length. 3 mm midpole calculus. No collecting system dilatation of either kidney. Normal color Doppler. Urinary bladder is unremarkable. Prevoid volume 270 mL. Postvoid volume 9 mL. Bilateral ureteral jets are visualized. Prostate volume: 24 mL IMPRESSION: Nonobstructing left renal calculus. Otherwise unremarkable This document has been electronically signed by: Galdino Penny MD on 03/21/2025 12:14:17
--- OUTSIDE RECORDS SUMMARY | 2025-03-20 13:07 | XMS_ITS | Clinical Summary ---
Author Organization [facility] it Address [address] [place] [address] Care Team Providers Care Surgical Asst Name Role Phone Unavailable Primary Care Provider [...] - 2023-2 5 season) 2024 Influenza Vaccine (Season Ended) 2025 RSV Immunization Adult Patie nts (1 - 1-dose 75+ series) 2034 HIB [...] age to complete this topic Meningococcal B Vaccine Aged Out No l onger eligible based on patient's age to complete [...]
== END 2025-03-20 11:20 | disposition home or self-care (01) ==
LOC: HO.HMGCX 11:19
PROVIDERS: PCP Nurse Practitioner Family; Visit Provider Nurse Practitioner Family
DX: N20.0 Calculus of kidney (principal)
CPT/HCPCS: 76770

== ENCOUNTER → 2025-03-20 11:20 | Outpatient (BNV) | payer BC, SELFPAY | PROVIDERS: PCP Nurse Practitioner Family; Visit Provider Radiology Vascular & Interventional Radiology | DX: N20.0 Calculus of kidney (principal) | CPT/HCPCS: 76770 ==

== ENCOUNTER 2025-03-28 09:17 | Outpatient (AMB) | payer OTHER, SELFPAY ==
--- NOTE | 2025-03-28 09:40 | A.OFFVIS_ITS ---
Intake Visit Reasons: 1y follow up/US(set) Intake Note: Patient presents today for follow up on: microscopic hematuria and nephrolithiasis Urology Medications: none Blood Thinner: aspirin Smoker: never Choker Hooker Required: No Accompanied by: Self / Same As Patient Allergies No Known Allergies Allergy (Verified 03/28/25 10:00) Medication List - Last Reconciled 03/28/25 by RUFINO Barlow aspirin 81 mg PO DAILY 90 days cholecalciferol (vitamin D3) 25 mcg PO DAILY CPAP face mask and supplies New sleep study scheduled for Nov 2024 losartan 100 mg PO DAILY multivitamin 1 tab PO DAILY pantoprazole 40 mg PO DAILY rosuvastatin 40 mg PO DAILY HPI Comments Details: Yemi Purcell is a very pleasant 64-year-old male patient of Dr. Guillen. He has a past medical history of hypercholesteremia, hypertension, obstructive sleep apnea on CPAP, ascending aortic aneurysm, and SVT s/p ablation. He presents to the office today for follow-up of his microscopic hematuria and nephrolithiasis. In discussion with the patient today he reports to be doing and feeling well. He denies having had any bothersome urinary issues or concerns since his last office visit here. Recent retroperitoneal ultrasound results were reviewed with the patient today 04/09 bilateral kidneys are normal in size and echotexture. 3 mm nonobstructing calculus. The urinary bladder is unremarkable. Postvoid bladder volume is approximately 10 mL. Prostate volume 25 mL. PSAs are as follows: 02/06 0.6, 02/07 0.7 We discussed stability in nonobstructing left renal calculus. In office urinalysis results reviewed with the patient today no microscopic hematuria noted. We discussed again potential causes of microscopic hematuria as well as further workup in risks and benefits of these interventions. When asked he denies any known chemical exposure and or smoking history. 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 He otherwise denies urinary urgency, urinary frequency, incontinence, nocturia, hematuria, dysuria, foul smelling urine, changes to urinary stream, flank pain, fever, and or chills. He is happy with his current voiding parameters. He would like to continue with surveillance monitoring with his PCP at this time. All questions were answered. He otherwise offers no other issues or concerns at this time. [facility] Medical History Elevated cholesterol REI on CPAP Essential hypertension Ascending aortic aneurysm SVT (supraventricular tachycardia) HTN (hypertension) Ascending aorta dilatation Surgical History Hx of meniscectomy of right knee History of meniscectomy of left knee Hx of colonoscopy History of esophagogastroduodenoscopy (EGD) Family History Father CHF (congestive heart failure) Vascular disease HTN (hypertension) CVD (cardiovascular disease) Diabetes mellitus Mother Stroke Brother HTN (hypertension) High cholesterol Blocked artery Sister HTN (hypertension) Son No problems noted. Daughter No problems noted. Social History Housing: House Alcohol intake: current Alcohol intake frequency: a few times a week Patient Tobacco Use Status: Never used Tobacco e-Cigarette/Vaping Use: Never Used Second Hand Smoke Exposure: No service: No Current occupational status: retired Cognitive needs: No Hearing needs: No Vision needs: No Review of Systems Const Reports no additional complaints Eyes Reports no additional complaints ENT Reports no additional complaints Card Reports as per HPI Resp Reports as per HPI GI Reports no additional complaints Reports as per HPI Musc Reports no additional complaints Neuro Reports no additional complaints Psych Reports no additional complaints Endo Reports no additional complaints Hardik/Lymph Reports no additional complaints Aller/Immun Reports no additional complaints Physical Exam Const General: cooperative, healthy appearing, comfortable, no acute distress, well developed, alert and awake Nutritional Appearance: overweight Orientation/consciousness: patient oriented x3 Limitations: no limitations HEENT Head: Yes normal to inspection, Yes normocephalic and Yes atraumatic Ears: hearing grossly normal bilaterally Eyes General: appearance normal, both eyes and all related structures Neck Neck: Yes normal visual inspection and Yes trachea midline Chest Chest palpation & inspection: normal inspection of the chest Resp Effort & Inspection: normal respiratory effort and able to speak in complete sentences Cardio Rate: regular rate GI Inspection: Yes normal to inspection General: Yes no CVA tenderness Back/Spine/Pelvis Back: no CVA tenderness Skin General skin exam: no rashes or lesions noted Neuro General: patient oriented x3 Extrem General: Yes normal to inspection Psych Appearance: grossly normal and well kempt Mental Status: mental status grossly normal Speech and movement: Normal speech and movement present and Clear speech present Affect: normal affect Attitude: cooperative Thought process: Normal thought process present Thought content: Normal thought content present Insight: Fair insight present (Psych) Judgement: Fair judgement present (Psych) Results AMB Urinalysis, Automated UA Leukoctes 0 Gwendolyn/uL Last Edit by Vizury on 03/28/25 10:08 UA Nitrite Negative Last Edit by Vizury on 03/28/25 10:08 UA Urobilinogen 0.2 mg/dL Last Edit by Vizury on 03/28/25 10:08 UA Protein 30 mg/dL Last Edit by Vizury on 03/28/25 10:08 UA pH 6.0 Last Edit by Vizury on 03/28/25 10:08 UA Blood 0 [place]/uL Last Edit by Vizury on 03/28/25 10:08 UA Specific [place] 1.025 Last Edit by Vizury on 03/28/25 10:08 UA Ketone Negative Last Edit by Vizury on 03/28/25 10:08 UA Bilirubin 0 mg/dL Last Edit by Vizury on 03/28/25 10:08 UA Glucose 0 mg/dL Last Edit by Vizury on 03/28/25 10:08 Results Reviewed Results Reviewed: Laboratory Last Values Urine pH (Auto) 6.0 03/28/25 10:07 Specific [place] (Auto) 1.025 03/28/25 10:07 Urine Protein (Auto) 30 mg/dL 03/28/25 10:07 Glucose (UA)(Auto) 0 mg/dL 03/28/25 10:07 Urine Ketones (Auto) Negative 03/28/25 10:07 Urine Blood (Auto) 0 [place]/uL 03/28/25 10:07 Urine Nitrite (Auto) Negative 03/28/25 10:07 Urine Bilirubin (Auto) 0 mg/dL 03/28/25 10:07 Urine Urobilinogen (Auto) 0.2 mg/dL 03/28/25 10:07 Leukocyte Esterase (Auto) 0 Gwendolyn/uL 03/28/25 10:07 Date of Service: 03/20/25 US Renal Findings: Right kidney normal size and echotexture, 12.2 cm length. Left kidney normal size and echotexture, 13.7 cm length. 3 mm midpole calculus. No collecting system dilatation of either kidney. Normal color Doppler. Urinary bladder is unremarkable. Prevoid volume 270 mL. Postvoid volume 9 mL. Bilateral ureteral jets are visualized. Prostate volume: 24 mL IMPRESSION: Nonobstructing left renal calculus. Otherwise unremarkable Assessment & Plan Assessment & Plan (1) Nephrolithiasis: Code(s): N20.0 - Calculus of kidney Category: Medical (2) Microscopic hematuria: Code(s): R31.29 - Other microscopic hematuria Category: Medical Plan In office urinalysis results reviewed with the patient today; as noted above. Recent PSA results reviewed with the patient today; as noted above. Recent retroperitoneal ultrasound results with the patient today; as noted above. We discussed at length potential causes of microscopic hematuria Patient currently denies any bothersome urinary issues or concerns. He reports be happy with current voiding parameters. All questions were answered. He will continue with surveillance monitoring with PCP Follow-up PRN Orders: Orders AMB Urinalysis Automated Today Z13.9 - Encounter for screening, unspecified Patient Instructions: The patient had an opportunity to ask questions regarding the treatment plan. All questions were answered. Physical exam, labs, and imaging were discussed and reviewed in detail. As well as risks, benefits, and discussion of treatment choices. No major barriers to understanding were identified. The patient expressed understanding and agreement with the above treatment plan. The patient was made aware they should contact our office by phone for worsening of their current condition, the appearance of new symptoms, or with any questions or concerns. Compliance is encouraged with any medications and follow up testing that is ordered. It is a privilege to be allowed the opportunity to participate in? your urological care.? Again, if you have any questions or concerns If you have any questions or concerns please do not hesitate to contact me. The office is [phone]. This note is constructed using voice recognition software. While every effort has been made to ensure accuracy educational assistant teacher errors may have been included. Yours sincerely, PRICE Barlow-BC Coding Level of Care Code Est Pt Level 3 (34696) Diagnoses Nephrolithiasis N20.0 Microscopic hematuria R31.29
--- OUTSIDE RECORDS SUMMARY | 2025-03-28 09:47 | XMS_ITS | Clinical Summary ---
Author Organization [facility] it Address [address] [place] [address] Care Team Providers Care Printmaker Name Role Phone Unavailable Primary Care Provider [...]
== END 2025-03-28 09:57 | disposition home or self-care (01) ==
LOC: HO.HUSH 09:17
PROVIDERS: PCP Nurse Practitioner Family; Visit Provider Nurse Practitioner Family
DX: N20.0 Calculus of kidney (principal); R31.29 Other microscopic hematuria; Z13.9 Encounter for screening, unspecified
CPT/HCPCS: 99213

== ENCOUNTER → 2025-03-28 09:17 | Outpatient (BNVA) | payer MEDICARE, SELFPAY | PROVIDERS: PCP Nurse Practitioner Family; Visit Provider Nurse Practitioner Family | DX: N20.0 Calculus of kidney (principal); R31.29 Other microscopic hematuria | CPT/HCPCS: 81003 ==

== ENCOUNTER 2025-06-05 08:02 | Outpatient (AMB) | payer BC, SELFPAY ==
--- OUTSIDE RECORDS SUMMARY | 2025-06-05 08:07 | XMS_ITS | Clinical Summary ---
Author Organization [facility] ity Address [address] [place] [address] Care Team Providers Care Carbon Accountant Name Role Phone Unavailable Primary Care Provider [...] Vaccine ( - 2023-2 5 season) 2024 Depression Screening 11/16/2024 Influenza Vaccine (#1) 2025 RSV Immunization Adult Patie nts (1 [...]
--- OUTSIDE RECORDS SUMMARY | 2025-06-05 08:07 | XMS_ITS | Clinical Summary ---
Author Organization [facility] Address [address] [place] [address] Phone Care Team Providers Care Atm Manager Name Role Phone Nelson Toscano NP Unavailable [phone] Nelson Toscano NP Primary Care Provider + Gamal Roque MD Unavailable [phone] Family History Medical History Relation Comments Heart failure Father Vascular disease Father Stroke Mother Relation Status Comments Father Mother Social History Tobacco Use Types Packs/Day Years Used Date Smoking Tobacco: Never Assessed Education Answer Date Recorded Are you interested in more education? Not on yeni e 03/13/2023 Are you concerned about learning? Not on file 03/13/2023 No 03/13/2023 No 03/13/2023 Digital Access Answer Date Recorded No 04/11/2023 No 04/11/2023 Reliable internet access at home? Not on file 04/11/2023 Device with a working camera? Not on file Sex and Gender Information Value Date Recorded Sex Assigned at Male 07/02/2020 12:01 PM EDT Legal Sex Male 11:55 AM EDT Gender Identity Male 07/02/2020 12:01 PM EDT Sexual Orientation Straight 07/02/2020 12 :01 PM EDT Plan of Treatment Health Maintenance Due Date Last Done Comments Adult Td,Tdap Booster 1959 LIPID PANEL 1959 DEPRESSION SCREENING 1971 SMOKING Hx and SMOKELESS TOB ACCO SCREENING 1972 HEPATITIS C SCREENING 1977 COLOGUARD 2004 COLONOSCOPY 2004 COLORECTAL CANCER SCREENING 2004 FIT TEST 2004 FOBT 2004 SIGMOIDOSCOPY 2004 VIRTUAL COLONOSCOPY 2004 PNEUMOCOCCAL VACCINES (50+ y ears) (1 of 1 - PCV) 2009 ZOSTER VACCINES (1 of 2) 2009 COVID-19 VACCINE (2 - 2023-2 5 season) 2024 11/29/2020 RSV VACCINE (1 - 1-dose 75+ series) 2034 HEPATITIS A VACCINES Aged Out No long er eligible based on patient's age to complete this topic HIB VACCINES Aged Out No longer eligi ble based on patient's age to complete this topic MENINGOCOCCAL VACCINES (ACWY) Aged Out No longer eligible based on patient's age to complete this topic MENINGOCOCCAL VACCINES (B) Aged Out N o longer eligible based on patient's age to complete this topic Medical Devices Not [place] [id number] [employer] [place] [employer] [place] [employer] [place] [employer] [place] [employer] [place] [employer] [place] [employer] [place] [employer] [place] [employer] [place] Care Teams Atm Manager Relationship Specialty Start Date End Date Nelson Toscano NP [address] [place] [address] [email or web address] PCP - General Family Medicine 07/02/20 Nelson Toscano NP [address] [place] [address] [address] [place] [phone] [email or web address] Family Medicine 07/02/20 Gamal Roque MD [address] [place] [address] [place] [id number] Manager Social Cardiology 07/13/20 Additional Source Comments The information contained in this document represents components of the legal health record. It is not the complete legal health record.[facility]
[2025-06-05 08:24] VITALS: BP 122/60; PULSE 69; BMI 36.8
--- NOTE | 2025-06-05 08:24 | MHC.OFFVIS ---
Vital Signs 06/05/25 08:24 Height 6 ft Weight 271 lb 2.697 oz BMI 36.8 BP 122/60 Blood Pressure Location Lt brachial Position Sitting Pulse 69 Pulse Source Monitor Intake Visit Reasons: 7 month follow-up after CT [place] [facility] Allergies No Known Allergies Allergy (Verified 03/28/25 10:00) Medication List - Last Reconciled 06/05/25 by Gamal Roque MD aspirin 81 mg PO DAILY 90 days cholecalciferol (vitamin D3) 25 mcg PO DAILY CPAP face mask and supplies New sleep study scheduled for Nov 2024 losartan 100 mg PO DAILY multivitamin 1 tab PO DAILY pantoprazole 40 mg PO DAILY rosuvastatin 40 mg PO DAILY HPI Comments Details: Yemi returns for follow-up regarding ascending aortic aneurysm and history of SVT. He states that he feels well. He has got no cardiac symptoms whatsoever. Active with no limitations. [facility] Medical History Elevated cholesterol REI on CPAP Essential hypertension Ascending aortic aneurysm SVT (supraventricular tachycardia) HTN (hypertension) Ascending aorta dilatation Surgical History Hx of meniscectomy of right knee History of meniscectomy of left knee Hx of colonoscopy History of esophagogastroduodenoscopy (EGD) Family History Father CHF (congestive heart failure) Vascular disease HTN (hypertension) CVD (cardiovascular disease) Diabetes mellitus Mother Stroke Brother HTN (hypertension) High cholesterol Blocked artery Sister HTN (hypertension) Son No problems noted. Daughter No problems noted. Social History Housing: House Alcohol intake: current Alcohol intake frequency: a few times a week Patient Tobacco Use Status: Never used Tobacco e-Cigarette/Vaping Use: Never Used Second Hand Smoke Exposure: No service: No Current occupational status: retired Cognitive needs: No Hearing needs: No Vision needs: No Review of Systems Const Denies weakness ENT Denies dizziness Card Denies chest pain, Denies chest pain with activity, Denies syncope, Denies rapid heart rate, Denies pedal edema, Denies edema, Denies leg edema, Denies lightheadedness, Denies palpitations, Denies dyspnea, Denies dyspnea on exertion and Denies orthopnea Resp Denies cough, Denies dyspnea and Denies dyspnea on exertion GI Denies hematochezia and Denies change in stool character Musc Denies abnormal gait, Denies muscle cramps, Denies muscle weakness, Denies numbness, Denies radiating pain into limb and Denies tingling Neuro Denies abnormal gait, Denies dizziness, Denies syncope, Denies numbness, Denies tingling and Denies weakness Endo Denies palpitations Physical Exam Vital Signs: Last Vital Signs Pulse 69 06/05/25 08:24 BP 122/60 06/05/25 08:24 BMI result Body Mass Index 36.8 Const General: comfortable and no acute distress Orientation/consciousness: patient oriented x3 HEENT Other: Unremarkable Head: Yes normal to inspection Neck Neck: Yes normal visual inspection Chest Chest palpation & inspection: normal inspection of the chest Resp Auscultation: clear to auscultation bilaterally Cardio Palpation: normal PMI Heart sounds: S1 normal heart sound present, S2 normal heart sound present, no gallops, no murmurs and no rubs GI Palpation (GI): Soft to palpation Back/Spine/Pelvis Other: unremarkable Skin General skin exam: no rashes or lesions noted Neuro General: patient oriented x3 Extrem General: Yes normal to inspection Psych Mental Status: mental status grossly normal Office Procedures EKG Details: EKG with underlying sinus rhythm at 69/Min; prolonged KS to 384 millisecond; [place]. [id number], Complete Assessment & Plan Assessment & Plan (1) Ascending aortic aneurysm: Code(s): I71.2 - Thoracic aortic aneurysm, without rupture Category: Medical Plan: In the CTA from 04/2025, ascending aortic size 4.4 cm. Aortic root 3.7 cm. Arch 3.6 cm. In the CTA from 01/2024, ascending aortic size 4.4 cm. Similar to prior studies. In prior coronary CTA, no hemodynamically significant CAD. In the last echocardiogram from 2021, ascending aortic size was 4.7 cm, much different from the CT results. As there is discrepancy between CT and echocardiographic measurements, we will just stay with CT only for future. Likely repeat CT in one year. (2) Essential hypertension: Code(s): I10 - Essential (primary) hypertension Category: Medical Plan: Stable on Losartan. (3) REI on CPAP: Code(s): G47.33 - Obstructive sleep apnea (adult) (pediatric); Z99.89 - Dependence on other enabling machines and devices Category: Medical Plan: CPAP. (4) SVT (supraventricular tachycardia): Comment: ablation Code(s): I47.1 - Supraventricular tachycardia Category: Medical Plan: s/p ablation. In stable. (5) Second degree heart block: Code(s): I44.1 - Atrioventricular block, second degree Category: Medical Plan: On baseline EKG, he has got quite a long KS interval. On Holter, he has evidence of Mobitz type 1 second-degree heart block. Likely related to his weight as well as sleep apnea. He does not have any symptoms like presyncope. We will need to monitor for progressive conduction system disease. Coding Level of Care Code Est Pt Level 4 (80952) Complex EM visit Add On G2211 Diagnoses Ascending aortic aneurysm I71.2 Essential hypertension I10 REI on CPAP G47.33; Z99.89 SVT (supraventricular tachycardia) I47.1 Second degree heart block I44.1 CPT Codes EKG - CPT: 14477-[id number], Complete ([id number])
== END 2025-06-05 08:43 | disposition home or self-care (01) ==
LOC: HO.HCS 08:03
PROVIDERS: PCP Nurse Practitioner Family; Visit Provider Internal Medicine
DX: I71.20 Thoracic aortic aneurysm, without rupture, unspecified (principal); I10 Essential (primary) hypertension; G47.33 Obstructive sleep apnea (adult) (pediatric); Z99.89 Dependence on other enabling machines and devices; I47.10 Supraventricular tachycardia, unspecified; I44.1 Atrioventricular block, second degree
CPT/HCPCS: 93010; 99214

== ENCOUNTER → 2025-06-05 08:02 | Outpatient (BNVA) | payer BC, SELFPAY | PROVIDERS: PCP Nurse Practitioner Family; Visit Provider Internal Medicine | DX: I10 Essential (primary) hypertension (principal); I71.20 Thoracic aortic aneurysm, without rupture, unspecified | CPT/HCPCS: 93005 ==